=== PATIENT | male | born 1940 | race Two or more races ===

== ENCOUNTER 2016-06-10 05:11 | Emergency (ER) | payer MEDICARE, OTHER ==
[~2016-06-10] VITALS: Ht 177.8 cm; Wt 83.2 kg
[~2016-06-10 05:11] MED LIST: ASPI-664 PO; ATOR20TA38 PO; CARV3.12 PO; CLON-429 PO; ESCI10TA PO; HYDR12.53 PO; IBUP-1542 PO; LISI-523 PO; OLOP2.5D OP; OMEP20CA16 PO; TICA90TA PO; [UNRECOGNIZED DRUG - CODE] OT
[2016-06-10 05:25] VITALS: Ht 177.8 cm; Wt 83.2 kg
[2016-06-10 05:50] LABS: ADD SCAN DIFF NO
[2016-06-10 05:59] LABS: BASOPHILS % 0.4 % (0.0-2.0); EOSINOPHILS # 0.3 10^3/ul (0.0-0.5); HEMATOCRIT 54.3 % (42.0-52.0); HEMOGLOBIN 18.2 g/dl (14.0-18.0); LYMPHOCYTES # 1.8 10^3/ul (0.8-2.9); LYMPHOCYTES % 38.8 % (15.0-51.0); MEAN CORPUSCULAR HGB CONC 33.5 g/dl (32.0-37.0); MEAN CORPUSCULAR VOLUME 86.5 fl (82.0-101.0); MEAN PLATELET VOLUME 10.2 fl (7.4-10.4); MONOCYTE # 0.3 10^3/ul (0.3-0.9); MONOCYTES % 5.3 % (0.0-11.0); NEUTROPHIL # 2.3 10^3/ul (1.6-7.5); NEUTROPHILS % 48.3 % (39.0-77.0); PLATELET COUNT 287 10^3/UL (140-415); RED BLOOD COUNT 6.28 10^6/ul (4.70-6.10); RED CELL DISTRIBUTION WIDTH 14.5 % (11.5-14.5); WHITE BLOOD COUNT 4.7 10^3/ul (4.8-10.8)
[2016-06-10 06:05] LABS: INR 0.87; PROTIME 11.8 Sec (12.2-14.2); PT RATIO 0.9
[2016-06-10 06:05] LABS: POTASSIUM 3.8 mmol/L (3.5-5.1)
[2016-06-10 06:06] LABS: PARTIAL THROMBOPLASTIN TIME 31.7 Sec (25.0-35.0)
[2016-06-10 06:08] LABS: CREATININE 1.01 mg/dl (0.61-1.24)
[2016-06-10 06:09] LABS: CALCIUM 9.7 mg/dl (8.4-10.2)
--- NOTE | 2016-06-10 06:28 | RADRPT ---
PROCEDURE: CHEST - 1 VIEW CLINICAL INDICATION: 75-year-old male with shortness of breath. TECHNIQUE: A single frontal AP view of the chest was performed. The images were reviewed on a PAC S workstation. COMPARISON: Chest x-ray December 10, 2014. FINDINGS: The cardiomediastinal silhouette is prominent but without significant interval change. There is a s hallow inspiration. There is no evidence for focal consolidation. There is mild pulmonary vascular congestion. There is no evidence for pneumothorax. The osseous structures are intact. IMPRESSION: 1. Mild pulmonary vascular congestion. 2. Shallow inspiration. .Damion Wheeler MD, MD Date Time Electronically viewed and signed by .Damion Wheeler MD, on 06/10/2016 06:27 .Alda/
[2016-06-10 06:35] LABS: TROPONIN-I 0.139 ng/ml (0.00-0.12)
--- NOTE | 2016-06-10 06:42 | ERA ---
ER Documentation Chief Complaint Date/Time DATE: 06/10/16 TIME: 06:37 Chief Complaint palpitations,denies CP/SOB HPI 75-year-old male history of V. fib arrest status post stent who presents to the emergency room with palpitations. EMS had reported SVT however upon review of the rhythm strip it appears to be consistent with NSVT. The patient states that he has been having some palpitations and diaphoresis after taking Tylenol for leg pain. The patient had a workup at [facility] recently that rule out DVT. He was recently treated for urinary tract infection. He denied any chest pain or shortness of breath. He has no symptoms currently. The patient was in a sinus rhythm upon arrival. ROS All systems reviewed and are negative except as per history of present illness. Medications Home Meds Active Scripts Hydrochlorothiazide (Hydrochlorothiazide) 12.5 Mg Cap, 12.5 MG PO DAILY, #30 3 Refills Prov:OUMAR LOUIE 12/11/14 Ticagrelor* (Brilinta*) 90 Mg Tablet, 90 MG PO BID, #60 3 Refills Prov:OUMAR LOUIE 12/11/14 Lisinopril* (Zestril*) 5 Mg Tab, 2.5 MG PO DAILY, #30 3 Refills Prov:OUMAR LOUIE 12/11/14 Carvedilol* (Coreg*) 3.125 Mg Tab, 3.125 MG PO BID, #60 3 Refills Prov:OUMAR LOUIE 12/11/14 Atorvastatin Calcium* (Atorvastatin Calcium*) 20 Mg Tab, 40 MG PO DAILY@21, #30 3 Refills Prov:OUMAR LOUIE 12/11/14 Aspirin* (Aspirin* EC) 81 Mg Tabec, 81 MG PO DAILY, #120 Prov:OUMAR LOUIE 12/11/14 Reported Medications Olopatadine* (Pataday*) 0.2% - 2.5 Ml Drops, 1 DROP OP DAILY, EA INTO AFFECTED EYE(S) 12/04/14 Omeprazole* (Omeprazole*) 20 Mg Capsule.dr, 20 MG PO BID, CAP 12/04/14 Clonazepam* (Klonopin*) 0.5 Mg Tab, 0.5 MG PO TID, TAB 12/04/14 Ibuprofen* (Ibuprofen*) 600 Mg Tablet, 600 MG PO TID Y for PAIN, TAB 12/04/14 Escitalopram Oxalate* (Lexapro*) 10 Mg Tablet, 10 MG PO DAILY, TAB 12/04/14 Neomy Sulf/Colist Sul/Hc/Thonz (Cortisporin-Tc Ear Susp) 10 Ml Drops.susp, 3 DROP OT TID 12/04/14 Allergies Allergies: Coded Allergies: azithromycin (Verified Allergy, Unknown, 12/04/14) PMhx/Soc History of Surgery: Yes (s/p cardiac stent this admission) Anesthesia Reaction: No Hx Neurological Disorder: No Hx Respiratory Disorders: No Hx Cardiac Disorders: Yes (hpt) Hx Psychiatric Problems: No Hx Miscellaneous Medical Probl: Yes (HTN, hyperlipid; cardiac arrestx2) Hx Alcohol Use: No Hx Substance Use: No Hx Tobacco Use: No Smoking Status: Unknown if ever smoked FmHx Family History: No diabetes Physical Exam Vitals Vital Signs Date Time Temp Pulse Resp B/P Pulse Ox O2 Delivery O2 Flow Rate FiO2 06/10/16 07:26 98.0 82 18 100/74 100 06/10/16 05:35 Nasal Cannula 3 06/10/16 05:25 97.7 100 18 120/87 100 Physical Exam General: Well developed, well nourished, no acute distress Head: Normocephalic, atraumatic. Eyes: Pupils equally reactive, EOM intact ENT: Moist mucous membranes Neck: Supple, no lymphadenopathy Respiratory: Lungs clear bilaterally, no distress Cardiovascular: RRR, no murmurs, rubs, or gallops Abdominal: Soft, non-tender, non-distended, no peritoneal signs : Deferred MSK: No edema, no unilateral swelling, 5/5 strength Neurologic: Alert and oriented, moving all extremities, normal speech, no focal weakness, no cerebellar signs Skin: No rash Psych: Normal mood Result Diagram: 06/10/16 0545 06/10/16 0527 Results 24 hrs Laboratory Tests Test 06/10/16 05:27 06/10/16 05:40 06/10/16 05:45 Anion Gap 20 B-Type Natriuretic Peptide 1930PG/ML Blood Urea Nitrogen 13mg/dl Calcium Level 9.7mg/dl Carbon Dioxide Level 24mmol/L Chloride Level 99mmol/L Creatinine 1.01mg/dl Glucose Level 125mg/dl Magnesium Level 2.1mg/dl Potassium Level 3.8mmol/L Sodium Level 139mmol/L Troponin I 0.139ng/ml Activated Partial Thromboplast Time 31.7Sec INR International Normalized Ratio 0.87 Prothrombin Time 11.8Sec Prothrombin Time Ratio 0.9 Basophils # 0.010^3/ul Basophils % 0.4% Eosinophils # 0.310^3/ul Eosinophils % 7.0% Hematocrit 54.3% Hemoglobin 18.2g/dl Lymphocytes # 1.810^3/ul Lymphocytes % 38.8% Mean Corpuscular Hemoglobin 29.0pg Mean Corpuscular Hemoglobin Concent 33.5g/dl Mean Corpuscular Volume 86.5fl Mean Platelet Volume 10.2fl Monocytes # 0.310^3/ul Monocytes % 5.3% Neutrophils # 2.310^3/ul Neutrophils % 48.3% Nucleated Red Blood Cells # 0.010^3/ul Nucleated Red Blood Cells % 0.0/100WBC Platelet Count 05539^3/UL Red Blood Count 6.2810^6/ul Red Cell Distribution Width 14.5% White Blood Count 4.710^3/ul Current Medications Medications (Trade) Dose Ordered Sig/Stevan Route PRN Reason Start Time Stop Time Status Last Admin Dose Admin Aspirin (Aspirin) 324 mg ONCE ONCE PO 06/10/16 07:00 06/10/16 07:01 DC Amiodarone HCl 100 ml 100 ml ONCE STAT IV* 06/10/16 07:36 06/10/16 07:38 DC Amiodarone HCl (Cordarone 900mg/ D5W Drip) 500 ml @ 0 mls/hr ONCE STAT IV 06/10/16 07:36 06/10/16 07:38 DC Procedures/MDM EKG, MONITORS, & DIAGNOSTIC IMAGING: Rhythm strip: From EMS Rate/Rhythm: NSVT Impression: Nonsustained ventricular tachycardia EKG: I reviewed and interpreted a 12-lead EKG. Rhythm: Normal sinus rhythm Ectopy: None Intervals: Right bundle branch block ST segments: No elevations or depressions T waves: No contiguous inversions LAB INTERPRETATION: Elevated troponin MEDICAL DECISION MAKING: The patient presents with palpitations. He attributes this to taking Tylenol for leg pain status post stretch injury. However, the patient's rhythm strip in the field is very concerning for nonsustained ventricular tachycardia. The patient does not have a pacemaker he does not appear to take amiodarone or other antiarrhythmic agent. Additionally, the patient has a non-ST elevation myocardial infarction. This is likely secondary to demand ischemia given no other symptoms. The patient is asymptomatic currently. Aspirin will be provided. I will discuss the case with his glost kiln placer who is seen in the past of discussed amiodarone or other antiarrhythmic agent at this time. Magnesium has been sent. Pads been placed on the patient and the patient was placed on the monitor. He would warrant inpatient hospitalization for close observation. The patient will benefit from cardiology evaluation, EP evaluation and consideration for pacemaker/defibrillator. ER COURSE: The patient continues to be resting comfortably. He has had no further events. The patient's EF in the past was reduced to 40%. This is based on echocardiogram in 2014. I spoke to Dr. mark Choudhury who had seen the patient in the past. He recommends amiodarone bolus and drip, he recommends consultation for inpatient cardiology, consideration for defibrillator. I kept the patient and/or family informed of laboratory and diagnostic imaging results throughout the emergency room course. DISPOSITION PLAN: Telemetry admission CONSULTATION: Accepting care team and consultations: I discussed the current laboratory data, diagnostic imaging and emergency care provided. Admitting team: Dr. Shah Admitting team indication: Insurance directed Consulting services: Cardiology Dr. Freeman Departure Diagnosis: Primary Impression: Nonsustained ventricular tachycardia Additional Impression: Non-ST elevation myocardial infarction (NSTEMI) Condition: Stable ROHAN PHILIP MD Jun 10, 2016 06:42
[2016-06-10] MEDS ORDERED: ASPIRIN 81 MG TAB PO ONE (07:00)
[2016-06-10 07:26] VITALS: BP 100/74; PULSE 82; RESP 18; TEMP 98
[2016-06-10] MEDS ORDERED: AMIODARONE 150MG/D5W BOLUS IV* STA (07:36)
[2016-06-10] MEDS ORDERED: AMIODARONE 900MG/D5W DRIP 500 ML IV STA ×2 (07:36→09:13)
[2016-06-10] MEDS ORDERED: ONDANSETRON 4 MG INJ IV PRN (08:30)
[2016-06-10] MEDS ORDERED: ACETAMINOPHEN 325 MG TAB PO PRN (08:30)
[2016-06-10] MEDS ORDERED: AMIO400T5 PO (09:48)
[2016-06-10] MEDS ORDERED: TICA90TA PO (09:48)
--- NOTE | 2016-06-10 10:35 | CONS ---
Date/Time of Note Date/Time of Note DATE: 06/10/16 TIME: 10:21 Assessment/Plan Assessment/Plan Chief Complaint/Hosp Course NSVT vs SVT with aberrancy: Difficult to tell as similar QRS morphology. Rate of 150 could be consistent with atrial flutter but in the setting of previous [place] and structural heart disease/cardiomyopathy, cannot rule out NSVT/VT. The pt does not have chest pain or evidence of ischemia though he has mildly elevated trops. He is not in heart failure by exam. I think ideally he should be admitted for evaluation, EP eval and possible ICD placement, EP study, or ablation. However the pt refuses and would like to go home. He understands the risks including and will sign out AMA. He is agreeable to medications and I believe amiodarone is a reasonable option. I will have him sent out with amiodarone 400mg BID as an oral load and when he sees his caterer helper in 5 days , this can be decreased. He is already on coreg as well. 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 Of note the pt was offered an ICD in 2014 during his VF hospitalization but refused. He notes that he has been doing well since and he will be following up with a new caterer helper in 5 days. He took tylenol last night for leg pain and after t hat started to feel palpitations with rapid heart rate so he called 911. The paramedics had a strip concerning for SVT vs NSVT so they brought the pt in for evaluation. The pt notes that he feels well and he denies CP or SOB. No recent changes in his health condition. No syncope or presyncope. No prior episodes of palpitations. He he uninterested in inpt evaluation and respectfully would like to sign out AMA. He notes that he will absolutely refuse an ICD or any procedure including ablation if offered. He is agreeable to medications however. He notes that "Im an old man and I want to . I am not afraid of ". He denies suicidal ideation and simply explains it as he has lived a good life and does not want any life prolonging measures. per HPI Past Surgical History Past Surgical Hx: noncontributory Social History Smoking Status: Unknown if ever smoked Exam/Review of Systems Vital Signs Vitals Vital Signs Date Time Temp Pulse Resp B/P Pulse Ox O2 Delivery O2 Flow Rate FiO2 06/10/16 07:26 98.0 82 18 100/74 100 06/10/16 05:35 Nasal Cannula 3 Exam Constitutional: alert, oriented Psych: no complaints Head: atraumatic, normocephalic Eyes: nl conjunctiva ENMT: nl external ears & nose Neck: No jvd Respiratory: clear to auscultation, No crackles/rales Cardiovascular: regular rate and rhythm, No edema, No systolic murmur Gastrointestinal: non-tender, soft Extremities: normal pulses Neurological: nl mental status, nl speech Results EKG: sinus, q waves V1-3, no acute ST changes. Review of EMT EKG shows that the morphology of the arrhythmia is very similar to his baseline but slightly wider. It is mostly regular with HR ~150. No e/o AV dissociation. Unfortunately there is no rhythm strip but just a standard 12 lead with 3/4 in the tachycardia and the back end in sinus. Result Diagram: 06/10/16 0545 06/10/16 0527 Results 24 hrs Laboratory Tests Test 06/10/16 05:27 06/10/16 05:40 06/10/16 05:45 Anion Gap 20 H B-Type Natriuretic Peptide 1930 H Blood Urea Nitrogen 13 Calcium Level 9.7 Carbon Dioxide Level 24 Chloride Level 99 Creatinine 1.01 Glucose Level 125 Magnesium Level 2.1 Potassium Level 3.8 Sodium Level 139 Troponin I 0.139 *H Activated Partial Thromboplast Time 31.7 INR International Normalized Ratio 0.87 Prothrombin Time 11.8 L Prothrombin Time Ratio 0.9 Basophils # 0.0 Basophils % 0.4 Eosinophils # 0.3 Eosinophils % 7.0 Hematocrit 54.3 #H Hemoglobin 18.2 #H Lymphocytes # 1.8 Lymphocytes % 38.8 Mean Corpuscular Hemoglobin 29.0 Mean Corpuscular Hemoglobin Concent 33.5 Mean Corpuscular Volume 86.5 Mean Platelet Volume 10.2 Monocytes # 0.3 Monocytes % 5.3 Neutrophils # 2.3 Neutrophils % 48.3 Nucleated Red Blood Cells # 0.0 Nucleated Red Blood Cells % 0.0 Platelet Count 287 Red Blood Count 6.28 #H Red Cell Distribution Width 14.5 White Blood Count 4.7 #L INDY VELÁZQUEZ Jun 10, 2016 10:34
== END 2016-06-10 10:18 | disposition left against medical advice (07) ==
LOC: E/R 05:11
DX: I47.2 Ventricular tachycardia (principal); R40.2252 Coma scale, best verbal response, oriented, at arrival to emergency department; I21.4 Non-ST elevation (NSTEMI) myocardial infarction; I10 Essential (primary) hypertension; R40.2142 Coma scale, eyes open, spontaneous, at arrival to emergency department; R40.2362 Coma scale, best motor response, obeys commands, at arrival to emergency department; R06.02 Shortness of breath; Z79.82 Long term (current) use of aspirin
CPT/HCPCS: 36415; 71010; 80048; 83735; 83880; 84484; 85025; 85610; 85730; 96374; 99285; J0282

== ENCOUNTER 2018-07-15 07:56 | Inpatient (IN) | payer MEDICARE, OTHER ==
[2018-07-15] VITALS (16 sets, daily range): BP systolic 73–134; BP diastolic 46–119; PULSE 67–86; RESP 19–30; Ht 172.7 cm; Wt 75.0 kg
[~2018-07-15] VITALS: Ht 172.7 cm; Wt 75.0 kg
[~2018-07-15 07:56] MED LIST changes: +AMIO400T5 PO; -ASPI-664 PO; +ASPI-817 PO
[2018-07-15] MEDS ORDERED: SOD CHLORIDE 0.9% 1,000 ML IV STA (08:21)
[2018-07-15] MEDS ORDERED: AMIODARONE 150MG/D5W BOLUS 100 ML IV ONE (08:30)
[2018-07-15] MEDS ORDERED: PROPOFOL 200 MG INJ IV ONE (09:30)
[2018-07-15] MEDS ORDERED: HEPARIN 25000 UNITS/250 ML 250 ML IV STA (09:45)
--- NOTE | 2018-07-15 09:47 | ERD ---
ER Documentation Chief Complaint Chief Complaint gen abd pain for the past 2 days with no nausea/vomiting. no diarrhea HPI This is a 77-year-old male with a history of ventricular tachycardia with LAD stent placement. The patient was admitted here 3 years ago for chest pain and VT. He was apparently given amiodarone 400 mg twice daily but the patient left AMA. The patient states that over the past 2 days he has had a constant dull ache in his entire abdomen but no nausea vomiting or diarrhea. Denies any chest pain or shortness of breath. He was found to have a fast heart rate in triage in the 140s and was subsequently put on monitors here and has a wide-complex tachycardia. The family states that he has chronically low blood pressure with his baseline at 90/70. He states that he has been compliant with his medication ROS All systems reviewed and are negative except as per history of present illness. Medications Home Meds Active Scripts Ticagrelor* (Brilinta*) 90 Mg Tablet, 90 MG PO Q12 for 30 Days, TAB Prov:ROHAN PHILIP MD 06/10/16 Amiodarone Hcl* (Amiodarone Hcl*) 400 Mg Tablet, 400 MG PO BID for 30 Days, TAB Prov:ROHAN PHILIP MD 06/10/16 Hydrochlorothiazide (Hydrochlorothiazide) 12.5 Mg Cap, 12.5 MG PO DAILY, #30 3 Refills Prov:OUMAR LOUIE 12/11/14 Lisinopril* (Zestril*) 5 Mg Tab, 2.5 MG PO DAILY, #30 3 Refills Prov:OUMAR LOUIE 12/11/14 Carvedilol* (Coreg*) 3.125 Mg Tab, 3.125 MG PO BID, #60 3 Refills Prov:OUMAR LOUIE 12/11/14 Atorvastatin Calcium* (Atorvastatin Calcium*) 20 Mg Tab, 40 MG PO DAILY@21, #30 3 Refills Prov:OUMAR LOUIE 12/11/14 Aspirin* (Aspirin* EC) 81 Mg Tabec, 81 MG PO DAILY, #120 Prov:OUMAR LOUIE 12/11/14 Reported Medications Olopatadine* (Pataday*) 0.2% - 2.5 Ml Drops, 1 DROP OP DAILY, EA INTO AFFECTED EYE(S) 12/04/14 Omeprazole* (Omeprazole*) 20 Mg Capsule.dr, 20 MG PO BID, CAP 12/04/14 Clonazepam* (Klonopin*) 0.5 Mg Tab, 0.5 MG PO TID, TAB 12/04/14 Ibuprofen* (Ibuprofen*) 600 Mg Tablet, 600 MG PO TID PRN for PAIN, TAB 12/04/14 Escitalopram Oxalate* (Lexapro*) 10 Mg Tablet, 10 MG PO DAILY, TAB 12/04/14 Neomy Sulf/Colist Sul/Hc/Thonz (Cortisporin-Tc Ear Susp) 10 Ml Drops.susp, 3 DROP OT TID 12/04/14 Allergies Allergies: Coded Allergies: azithromycin (Verified Allergy, Unknown, 12/04/14) PMhx/Soc History of Surgery: Yes (Heart stent in 2014) Anesthesia Reaction: No Hx Neurological Disorder: No Hx Respiratory Disorders: No Hx Cardiac Disorders: Yes (hypotension) Hx Psychiatric Problems: No Hx Miscellaneous Medical Probl: Yes (HTN, hyperlipid; cardiac arrestx2) Hx Alcohol Use: No Hx Substance Use: No Hx Tobacco Use: No Smoking Status: Never smoker FmHx Family History: No coronary disease Physical Exam Vitals Vital Signs Date Temp Pulse Resp B/P (MAP) Pulse Ox O2 O2 Flow FiO2 Time Delivery Rate 07/15/18 66 20 77/62 (67) 97 Non 15.0 09:33 Rebreather 07/15/18 67 22 85/67 (73) 99 Non 15.0 09:30 Rebreather 07/15/18 141 26 80/57 (65) 100 Nasal 2.0 08:54 Cannula 07/15/18 145 25 91/78 (82) 100 Nasal 2.0 08:33 Cannula 07/15/18 Nasal 2 08:33 Cannula 07/15/18 98.5 142 20 103/79 100 07:57 (87) Physical Exam Const: Well-developed, well-nourished Head: Atraumatic, normocephalic Eyes: Normal Conjunctiva, PERRLA, EOMI, normal sclera, no nystagmus ENT: Normal External Ears, Nose and Mouth, moist mucus membranes. Neck: Full range of motion. No meningismus, no lymphadenopathy. Resp: Clear to auscultation bilaterally, no wheezing, rhonchi, rales Cardio: Tachycardia heart rate 142, no murmurs, S1 S2 present] Abd: Soft, diffuse abdominal tenderness, non distended. Normal bowel sounds, no guarding or rebound, no pulsitile abdominal masses or bruits Skin: No petechiae or rashes, no ecchymosis , no maculopapular rash Back: No midline or flank tenderness Ext: No cyanosis, or edema, FROM x 4, normal inspection, neurovascularly intact x 4 Neur: Awake and alert, STR 5/5 x 4, sensation intact x 4, no focal findings, cerebellum intact Psych: Normal Mood and Affect Result Diagram: 07/15/18 0815 07/15/18 0815 Results 24 hrs Laboratory Tests Test 07/15/18 08:15 White Blood Count 6.3 10^3/ul Red Blood Count 4.94 10^6/ul Hemoglobin 14.5 g/dl Hematocrit 42.8 % Mean Corpuscular Volume 86.6 fl Mean Corpuscular Hemoglobin 29.4 pg Mean Corpuscular Hemoglobin Concent 33.9 g/dl Red Cell Distribution Width 14.5 % Platelet Count 279 10^3/UL Mean Platelet Volume 11.0 fl Immature Granulocytes % 0.300 % Neutrophils % 65.8 % Lymphocytes % 23.8 % Monocytes % 9.6 % Eosinophils % 0.3 % Basophils % 0.2 % Nucleated Red Blood Cells % 0.0 /100WBC Immature Granulocytes # 0.020 10^3/ul Neutrophils # 4.1 10^3/ul Lymphocytes # 1.5 10^3/ul Monocytes # 0.6 10^3/ul Eosinophils # 0.0 10^3/ul Basophils # 0.0 10^3/ul Nucleated Red Blood Cells # 0.0 10^3/ul Prothrombin Time 16.7 Sec Prothrombin Time Ratio 1.3 INR International Normalized Ratio 1.34 Activated Partial Thromboplast Time 38.3 Sec Sodium Level 127 mmol/L Potassium Level 5.1 mmol/L Chloride Level 92 mmol/L Carbon Dioxide Level 20 mmol/L Anion Gap 15 Blood Urea Nitrogen 32 mg/dl Creatinine 1.63 mg/dl Est Glomerular Filtrat Rate mL/min mL/min Glucose Level 154 mg/dl Calcium Level 9.3 mg/dl Total Bilirubin 1.1 mg/dl Direct Bilirubin 0.00 mg/dl Indirect Bilirubin 1.1 mg/dl Aspartate Amino Transf (AST/SGOT) 36 IU/L Alanine Aminotransferase (ALT/SGPT) 25 IU/L Alkaline Phosphatase 67 IU/L Troponin I 1.040 ng/ml Total Protein 7.1 g/dl Albumin 4.2 g/dl Globulin 2.90 g/dl Albumin/Globulin Ratio 1.44 Lipase 60 U/L Current Medications Medications Dose Sig/Stevan Start Time Status Last (Trade) Ordered Route PRN Stop Time Admin Dose Reason Admin Sodium 1,000 ml @ Q1H STAT 07/15/18 DC 07/15/18 Chloride 1,000 mls/hr IV 08:21 08:26 07/15/18 09:20 Amiodarone 100 ml @ ONCE ONCE 07/15/18 DC 07/15/18 HCl 600 mls/hr IV 08:30 08:26 07/15/18 08:39 Propofol 100 mg ONCE ONCE 07/15/18 DC (Diprivan) IV 09:30 07/15/18 09:31 Procedures/MDM EKG: Rate/Rhythm: Wide-complex tachycardia heart rate 142 with int raventricular block QRS, ST, QT: NORMAL AR, QRS, QT] Impression: Abnormal EKG Gave the patient a bolus of amiodarone 150 mg but this did not change his rhythm. Blood pressure continue to wax and wane from systolic of 75-85. He was then given propofol 70 mg IV for conscious sedation, he was then defibrillated at synchronized 100 J with successful cardioversion EKG: Rate/Rhythm: Normal sinus rhythm heart rate 63 with PVCs with right bundle branch and left anterior fascicular block with Q waves in V1 and V2 with elevated ST segments in leads V2 QRS, ST, QT: NORMAL AR, QRS, QT] Impression: Abnormal EKG Dr Cervantes reviewed the EKG after conversion and says there is no elevation consistent with STEMI. He advised me to put him on a heparin drip and get a echocardiogram and he will likely taken to the [facility] later today if no contraindications Procedural Sedation: Pre-assessment performed. See preceding complete history and physical for details. Time out performed. [employer], Continuous Pulse Ox. See sedation documentation for details. Medication(s): Propofol Complications: No hypoxic or apneic events Recovered without incident. Greater than 15 minutes of face to face time included in sedation and recovery. Cardioversion: Pre-assessment performed. See preceding complete history and physical for details. Time out performed. [employer], Continuous Pulse Ox. See sedation documentation for details. Technique: Biphasic Synchronized Cardioversion 100J: Converted 200J: Unnecessary Complications: No hypotensive events Critical Care: Time: 45 minutes Treatments/Evaluations: Close monitoring for dangerous arrhythmia and cardiovascular collapse, while treating with advance cardiac medications and techniques. Departure Diagnosis: Primary Impression: NSTEMI (non-ST elevated myocardial infarction) Additional Impression: Wide-complex tachycardia Condition: Serious VANDANA CAMPOS DO Jul 15, 2018 09:47
[2018-07-15] MEDS ORDERED: SACU1TAB PO (09:53)
[2018-07-15] MEDS ORDERED: APIX5TAB PO (09:53)
[2018-07-15] MEDS ORDERED: CARV6.2579 PO (09:54)
[2018-07-15] MEDS ORDERED: TAMS0.4C2 PO (09:54)
[2018-07-15] MEDS ORDERED: PANT40TA4 PO (09:54)
[2018-07-15] MEDS ORDERED: ACETAMINOPHEN 325 MG TAB PO PRN ×2 (10:00→12:00)
[2018-07-15] MEDS ORDERED: ONDANSETRON 4 MG INJ IV PRN ×2 (10:00→12:00)
--- NOTE | 2018-07-15 11:53 | HP ---
Date/Time of Note Date/Time of Note DATE: 07/15/18 TIME: 11:53 Assessment/Plan VTE Prophylaxis Pharmacological prophylaxis: heparin Lines/Catheters IV [facility]from [facility]): Saline Lock Assessment/Plan Hospital Course 77-year-old male with prior history of cardiac arrest with STEMI in 2015 with LAD stent placement, ischemic cardiomyopathy (ejection fraction 40%), dyslipidemia, hypertension, and ventricular tachycardia, who came to the emergency room with chief complaint of abdominal pain, who was found to have evidence of underlying unstable ventricular tachycardia who was cardioverted in the emergency room to sinus rhythm and is being admitted to inpatient setting for further treatment and evaluation. 1. Unstable ventricular tachycardia. -Status post cardioversion in the emergency room. -Cardiology consult pending. -Continue telemetry monitoring. 2. NSTEMI. -To rule out ACS. -Continue heparin drip. -Await cardiology recommendations 3. Acute kidney injury. -Nonoliguric -Etiology unclear. -Hold nephrotoxic medications. -Adequately hydrate the patient. -Obtain nephrology consult 4. Hyponatremia. -Etiology unclear. -Obtain nephrology consult. -Correct sodium levels gradually. 5. Ischemic cardiomyopathy. -Resume MERI inhibitors and beta-blockers as appropriate. 6. Dyslipidemia. -Continue statins. 7. Abdominal pain. -Etiology unclear. -Abdominal imaging showing evidence of cholelithiasis. -LFTs within normal limits. -Trend LFTs. -Obtain right upper quadrant ultrasound. Plan: The patient will be admitted to inpatient intensive care unit floor. The patient will be kept n.p.o. The patient will be started on DVT prophylaxis and gastrointestinal prophylaxis. The patient will remain a full code. Activities will be bed rest. The rest of the patient's management will be based on the clinical course, inputs from consultants, and the results of diagnostic studies. Based on the patient's clinical presentation, he most probably requires at least 2 midnights' stay for further management and evaluation of his clinical presentation. The patient was seen in collaboration with Dr. Shah. Result Diagram: 07/15/18 0815 07/15/18 0815 Results 24hrs Laboratory Tests Test 07/15/18 08:15 White Blood Count 6.3 # Red Blood Count 4.94 # Hemoglobin 14.5 # Hematocrit 42.8 # Mean Corpuscular Volume 86.6 Mean Corpuscular Hemoglobin 29.4 Mean Corpuscular Hemoglobin Concent 33.9 Red Cell Distribution Width 14.5 Platelet Count 279 Mean Platelet Volume 11.0 H Immature Granulocytes % 0.300 Neutrophils % 65.8 Lymphocytes % 23.8 Monocytes % 9.6 Eosinophils % 0.3 Basophils % 0.2 Nucleated Red Blood Cells % 0.0 Immature Granulocytes # 0.020 Neutrophils # 4.1 Lymphocytes # 1.5 Monocytes # 0.6 Eosinophils # 0.0 Basophils # 0.0 Nucleated Red Blood Cells # 0.0 Prothrombin Time 16.7 H Prothrombin Time Ratio 1.3 INR International Normalized Ratio 1.34 Activated Partial Thromboplast Time 38.3 H Sodium Level 127 L Potassium Level 5.1 Chloride Level 92 L Carbon Dioxide Level 20 L Anion Gap 15 H Blood Urea Nitrogen 32 H Creatinine 1.63 H Est Glomerular Filtrat Rate mL/min Glucose Level 154 Calcium Level 9.3 Total Bilirubin 1.1 Direct Bilirubin 0.00 Indirect Bilirubin 1.1 Aspartate Amino Transf (AST/SGOT) 36 Alanine Aminotransferase (ALT/SGPT) 25 Alkaline Phosphatase 67 Troponin I 1.040 *H Total Protein 7.1 Albumin 4.2 Globulin 2.90 Albumin/Globulin Ratio 1.44 Lipase 60 HPI/ROS Admit Date/Time Admit Date/Time Jul 15, 2018 at 09:58 Hx of Present Illness This is a 77-year-old male with comorbidities including hypertension, dyslipidemia, CAD status post LAD stenting in 2014, status post cardiac arrest in 2014, and prior nicotine use. The patient came to the emergency room today with generalized abdominal pain. Patient was noticed to be in the ventricular tachycardia with hypotension. Therefore, the patient was sedated and cardioverted in the emergency room. The patient's postprocedure EKG was evaluated by jackscrew worker there was no evidence of STEMI. The patient was also noticed to have elevated troponins. The patient was started on a heparin drip. The patient was also noted to be in acute kidney injury. The patient also had a sodium level of 127. The patient denied any nausea/vomiting. The patient denied any diarrhea. The patient denied any chest pain. The patient denied any palpitations. Patient verbalized that he has been compliant with all his medications. The patient currently takes Eliquis, Lipitor, Entresto, Coreg, and Protonix. Later, the patient's CT scan of the abdomen and pelvis was showing biliary sludge with possible wall thickening/surrounding inflammatory changes about the gallbladder. The patient's LFTs were within normal limits. ROS Constitutional: no complaints Eyes: no complaints ENT: no complaints Respiratory: no complaints Cardiovascular: no complaints Gastrointestinal: pain Genitourinary: no complaints Musculoskeletal: no complaints Skin: no complaints Neurologic: no complaints Endocrine: no complaints Lymphatic: no complaints Psychological: no complaints Immunologic: no complaints PMH/Family/Social Past Medical History 1. V. fib cardiac arrest. 2. CAD status post drug-eluting stent to LAD. 3. Ventricular tachycardia. 4. Ischemic cardiomyopathy. 5. Dyslipidemia. Medications Current Medications Heparin Sodium (Porcine) 250 ml @ 9 mls/hr ONCE STAT IV Last administered on 07/15/18at 10:04; Admin Dose 9 MLS/HR; Start 07/15/18 at 09:45; Stop 07/16/18 at 13:31 Ondansetron HCl (Zofran Inj) 4 mg ER BRIDGE PRN IV NAUSEA/VOMITING; Start 07/15/18 at 10:00; Stop 07/16/18 at 09:59 Acetaminophen (Tylenol Tab) 650 mg ER BRIDGE PRN PO .MILD PAIN 1-3 OR TEMP; Start 07/15/18 at 10:00; Stop 07/16/18 at 09:59 IV Flush (NS 3 ml) 3 ml PER PROTOCOL IV ; Start 07/15/18 at 12:00; Status UNV Ondansetron HCl (Zofran Inj) 4 mg Q6H PRN IV NAUSEA/VOMITING; Start 07/15/18 at 12:00; Status UNV Acetaminophen (Tylenol Tab) 650 mg Q6H PRN PO .PAIN 1-3 OR TEMP; Start 07/15/18 at 12:00; Status UNV Morphine Sulfate (morphine) 2 mg Q4H PRN IV .PAIN 7-10; Start 07/15/18 at 12:00; Status UNV Coded Allergies: azithromycin (Verified Allergy, Unknown, 07/15/18) Past Surgical History Past Surgical Hx: angioplasty Family History Significant Family History: no pertinent family hx Social History Alcohol Use: none Smoking Status: Former smoker Drug Use: none Exam/Review of Systems Vital Signs Vitals Vital Signs Date Temp Pulse Resp B/P (MAP) Pulse Ox O2 O2 Flow FiO2 Time Delivery Rate 07/15/18 66 22 85/66 (72) 100 Nasal 2.0 10:36 Cannula 4/15/19 98.5 07:57 Exam Exam General: Adequately build 77 year-old male lying in bed in no apparent distress. HEENT: Normocephalic, atraumatic. Eyes: Anicteric sclerae, conjunctivae clear. ENT: Nasal septum midline, oral mucosa moist. Neck supple. Respiratory: Bilaterally clear breath sounds. No use of accessory muscles of respiration. No adventitious breath sounds. Cardiovascular: S1, S2 heard. Regular rate and rhythm. Abdomen: Soft, nontender, and nondistended. Bowel sounds positive in all 4 quadrants. Genitourinary: Deferred. Extremities: No cyanosis, no clubbing, no edema. Peripheral pulses palpable. Neurologic: Cranial nerves II through XII grossly intact. The patient is awake, alert, and oriented. Skin: Normal skin turgor. No skin rashes. Additional Comments CT Abdomen & Pelvis IMPRESSION: 1. Biliary sludge with possible wall thickening/surrounding inflammatory changes about the gallbladder, though markedly limited due to motion artifact in the upper abdomen. Recommend right upper quadrant abdominal ultrasound for further evaluation of potential acute cholecystitis as clinically warranted. 2. Apparent bilateral lower lobe bronchial wall thickening, possible scattered secretions, also suboptimally assessed, may reflect airway inflammation/infection. Correlate for potential pneumonia. CXR IMPRESSION: 1. Slightly elevated right diaphragm. Mild central bronchial wall thickening compatible with trace edema or airways inflammation. 2. Aortic atherosclerosis. ELLY CAMPBELL NP Jul 15, 2018 11:53
[2018-07-15] MEDS ORDERED: morphine 2 MG INJ IV PRN (12:00)
[2018-07-15] MEDS ORDERED: NACL 0.9% 3 ML SYG IV SCH (12:00)
--- NOTE | 2018-07-15 14:16 | RADRPT ---
Echocardiogram Report Patient Name: Jacek LOPEZ ID: [id number] : 1940 (77y 10m)Study Date: 07/15/2018 10:03:11 AM Gender: [place]ession #: [id number] Tech: [place] Location: Ref.Physician: VANDANA CAMPOS Height(Cm): BSA: Weight(Kg): Quality: AdequateAccount #: Procedures: Echocardiographic Report: Transthoracic echocardiogram with complete 2D, M-Mode, and doppler examination. Indications: Evaluate Left Ventricular function. VT positive Troponin. Measurements: 2D/M Mode Doppler Measurement Value Normal Range Measurement Value Normal Range LVIDd 2D 6.5 [ 4.2 - 5.8 ] cm AV Peak Socrates 1.1 [ 100.0 - 170.0 ] cm/sec LVIDs 2D 6.5 [ 2.5 - 4.0 ] cm AV Peak PG 5.0 [ 2.0 - 9.0 ] mmHg LVPWd 2D 0.8 [ 0.6 - 1.0 ] cm LVOT Peak Socrates 0.7 [ 70.0 - 110.0 ] cm/sec IVSd 2D 0.9 [ 0.6 - 1.0 ] cm LVOT Peak PG 2.0 [ 2.0 - 6.0 ] mmHg AoR Diam 2D 3.5 [ 2.6 - 3.4 ] cm MV E Peak Socrates 0.7 [ 60.0 - 130.0 ] cm/sec EDV 2D 216.0 [ 62.0 - 150.0 ] ml MV A Peak Socrates 0.4 [ 100.0 - 120.0 ] cm/sec ESV 2D 216.0 [ 21.0 - 61.0 ] ml MV E/A 1.7 [ 0.8 - 1.5 ] ratio EF 2D 0.0 [ 52.0 - 72.0 ] percent MV Decel Time 176 [ 104 - 258 ] msec LA Dimen 2D 3.9 [ 3.0 - 4.0 ] cm Lat E` Socrates 0.0 [ 10.0 - 15.0 ] cm/sec Lateral E/E` 15.9 [ 1.0 - 2.0 ] ratio MV E/A 1.7 [ 0.8 - 1.5 ] ratio TR Peak Socrates 2.5 [ 100.0 - 280.0 ] cm/sec TR Peak PG 25.0 mmHg RVSP 35.0 [ 10.0 - 36.0 ] mmHg RA Pressure 10.0 mmHg Findings: Left Ventricle: Normal left ventricular wall thickness. Moderate enlargement of left ventricle cavity. Severe left ventricular systolic dysfunction. Ejection fraction is visually estimated at 15-20 %. These segments of the LV are hypokinetic mid anterior segment, apical anterior segment, apical lateral segment, anterolateral mid segment, inferior apex segment, apex and apical septum. Right Ventricle: Normal right ventricular size. Normal right ventricular systolic function. Left Atrium: The left atrium is normal in size. Right Atrium: The right atrium is normal in size. Mitral Valve: Mitral valve leaflets appear mildly thickened. Mild mitral annular calcification. Mild mitral valve regurgitation. Aortic Valve: Normal appearance of the aortic valve. No significant aortic stenosis or insufficiency. Tricuspid Valve: Normal appearance of the tricuspid valve. Estimated peak PA systolic pressure 35 mmHg. There is mild tricuspid regurgitation. Pulmonic Valve: Normal pulmonic valve appearance. Pericardium: Normal pericardium with no significant pericardial effusion. Aorta: Normal aortic root. IVC: Dilated IVC with respiratory collapse consistent with elevated right atrial pressure. Conclusions: Normal left ventricular wall thickness. Moderate enlargement of left ventricle cavity. Severe left ventricular systolic dysfunction. Ejection fraction is visually estimated at 15-20 %. These segments of the LV are hypokinetic mid anterior segment, apical anterior segment, apical lateral segment, anterolateral mid segment, inferior apex segment, apex and apical septum. Mitral valve leaflets appear mildly thickened. Mild mitral annular calcification. Mild mitral valve regurgitation. Normal appearance of the aortic valve. No significant aortic stenosis or insufficiency. Normal appearance of the tricuspid valve. Estimated peak PA systolic pressure 35 mmHg. There is mild tricuspid regurgitation. Dilated IVC with respiratory collapse consistent with elevated right atrial pressure. Electronically Signed By: Paul Stock 2018-07-15 14:14:51 PDT
--- NOTE | 2018-07-15 15:02 | CONS ---
Assessment/Plan Assessment/Plan Hospital Course (Demo Recall) Ventricular tachycardia requiring emergent/urgent cardioversion Severe ischemic cardiomyopathy ejection fraction of less than 20% Non-ST elevation myocardial infarction History of hypertension Likely dyslipidemia Acute renal insufficiency Recommendations: I have a lengthy discussion with the patient and his daughter. Coronary angiogram and most likely defibrillator was recommended to the patient and the family strongly. However patient and family said this has been discussed with him in the past and he has refused to have it done he does not want to have any procedures or surgery done including does not want to have even a lamine angiogram done and is only interested in medications Serial cardiac enzymes will be checked. We will continue medical therapy only at this point given his wishes Coreg will be continued increase as tolerated I will start the patient on amiodarone p.o. for now Statin will be added Entresto will be resumed tomorrow his renal function remains stable Diuresis as needed Thank you for his referral. We will continue to follow along with you ELIZABETH CONNELL MD [facility] Consultation Date/Type/Reason Admit Date/Time Jul 15, 2018 at 09:58 Date of Consultation: Jul 15, 2018 Type of Consult Cardiology Reason for Consultation VT. + TROP Requesting Provider: VANDANA CAMPOS DO Date/Time of Note DATE: 07/15/18 TIME: 14:55 Hx of Present Illness Interventional cardiology consultation note Chief complaint: Lower abdominal pain Reason for consult: Ventricular tachycardia positive troponin History of present illness: Thank you for this referral. History was from the patient extensive review of the old chart discussion with his daughter who is also translating This is a pleasant 77-year-old -[place] gentleman with history of coronary artery disease status post V. fib cardiac arrest status post PCI of his LAD in 2014 who has had another V. tach apparently couple of years ago and signed out AMA who presented to emergency room with complaint of lower abdominal pain. Patient was noted to have wide complex tachycardia/ventricular tachycar kanika and became hypotensive and required to get urgent/emergent cardioversion in the emergency room. Denies any chest pain or pressure to me denies any palpitation to me. He has refused ICD apparently before. At this point I spoke to him to his daughter and he is refusing to have any surgery including any coronary angiogram or defibrillator done. Denies any PND orthopnea to me at this point Allergies: Azithromycin Medications were reviewed as per medical reconciliation sheet According to the patient and daughter he is on Eliquis 5 twice daily Entresto Coreg amiodarone Family history: Denies any history of coronary artery disease Social history: Has quit smoking Past medical history: Coronary artery disease status post PA status post PCI of his LAD 2014 status post V. fib cardiac arrest, hypertension possibly paroxysmal atrial fibrillation Review of system: Patient denies all others except for above-mentioned Past Medical History Home Meds Reported Medications Carvedilol* (Carvedilol*) 6.25 Mg Tablet, 6.25 MG PO BID, #60 TAB 07/15/18 Tamsulosin Hcl* (Tamsulosin Hcl*) 0.4 Mg Cap.er.24h, 0.4 MG PO HS, CAP 07/15/18 Pantoprazole* (Pantoprazole*) 40 Mg Tablet.dr, 40 MG PO AC BREAKFAST, TAB 07/15/18 Apixaban* (Eliquis*) 5 Mg Tablet, 5 MG PO BID, TAB 07/15/18 Sacubitril/Valsartan (Entresto 24 mg-26 mg Tablet) 1 Each Tablet, 1 EACH PO BID, TAB 07/15/18 Discontinued Reported Medications Olopatadine* (Pataday*) 0.2% - 2.5 Ml Drops, 1 DROP OP DAILY, EA INTO AFFECTED EYE(S) 12/04/14 Omeprazole* (Omeprazole*) 20 Mg Capsule.dr, 20 MG PO BID, CAP 12/04/14 Clonazepam* (Klonopin*) 0.5 Mg Tab, 0.5 MG PO TID, TAB 12/04/14 Ibuprofen* (Ibuprofen*) 600 Mg Tablet, 600 MG PO TID PRN for PAIN, TAB 12/04/14 Escitalopram Oxalate* (Lexapro*) 10 Mg Tablet, 10 MG PO DAILY, TAB 12/04/14 Neomy Sulf/Colist Sul/Hc/Thonz (Cortisporin-Tc Ear Susp) 10 Ml Drops.susp, 3 DROP OT TID 12/04/14 Discontinued Scripts Ticagrelor* (Brilinta*) 90 Mg Tablet, 90 MG PO Q12 for 30 Days, TAB Prov:ROHAN PHILIP MD 06/10/16 Amiodarone Hcl* (Amiodarone Hcl*) 400 Mg Tablet, 400 MG PO BID for 30 Days, TAB Prov:ROHAN PHILIP MD 06/10/16 Hydrochlorothiazide (Hydrochlorothiazide) 12.5 Mg Cap, 12.5 MG PO DAILY, #30 3 Refills Prov:OUMAR LOUIE 12/11/14 Lisinopril* (Zestril*) 5 Mg Tab, 2.5 MG PO DAILY, #30 3 Refills Prov:OUMAR LOUIE 12/11/14 Carvedilol* (Coreg*) 3.125 Mg Tab, 3.125 MG PO BID, #60 3 Refills Prov:OUMAR LOUIE 12/11/14 Atorvastatin Calcium* (Atorvastatin Calcium*) 20 Mg Tab, 40 MG PO DAILY@21, #30 3 Refills Prov:OUMAR LOUIE 12/11/14 Aspirin* (Aspirin* EC) 81 Mg Tabec, 81 MG PO DAILY, #120 Prov:OUMAR LOUIE 12/11/14 Medications Current Medications Heparin Sodium (Porcine) 250 ml @ 9 mls/hr ONCE STAT IV Last administered on 07/15/18at 10:04; Admin Dose 9 MLS/HR; Start 07/15/18 at 09:45; Stop 07/16/18 at 13:31 IV Flush (NS 3 ml) 3 ml PER PROTOCOL IV ; Start 07/15/18 at 12:00 Ondansetron HCl (Zofran Inj) 4 mg Q6H PRN IV NAUSEA/VOMITING; Start 07/15/18 at 12:00 Acetaminophen (Tylenol Tab) 650 mg Q6H PRN PO .PAIN 1-3 OR TEMP; Start 07/15/18 at 12:00 Morphine Sulfate (morphine) 2 mg Q4H PRN IV .PAIN 7-10; Start 07/15/18 at 12:00 Pantoprazole (Protonix Tab) 40 mg BID@06,18 PO ; Start 07/15/18 at 18:00 Atorvastatin Calcium (Lipitor) 40 mg HS PO ; Start 07/15/18 at 21:00 Allergies: Coded Allergies: azithromycin (Verified Allergy, Unknown, 07/15/18) Past Surgical History Past Surgical Hx: angioplasty Social History Alcohol Use: none Smoking Status: Former smoker Drug Use: none Exam/Review of Systems Vital Signs Vitals Vital Signs Date Temp Pulse Resp B/P (MAP) Pulse Ox O2 O2 Flow FiO2 Time Delivery Rate 07/15/18 98.1 67 22 107/80 97 Nasal 12:00 (89) Cannula 07/15/18 3.0 12:00 Exam Exam General: no acute distress HEENT: NC/AT. pupils are equal. round. NECK: NO JVD. no stridor. CV: RRR. systolic murmur; no gallop or rubs. PULM: no wheezing or rhonchi. GI: SOFT, NT, ND, no rebound or guarding Extremity: trace B/L LE edema. no clubbing. neuro: awake and alert, OX3. Psych: calm and pleasant rectal: deferred : normal male. EKG done in the emergency room initially has showed wide complex tachycardia consistent with ventricular tachycardia. Repeat EKG showed normal sinus rhythm with frequent PAC with interventricular conduction delay QRS weight is 150 ms Echocardiogram was personally reviewed which shows: Normal left ventricular wall thickness. Moderate enlargement of left ventricle cavity. Severe left ventricular systolic dysfunction. Ejection fraction is visually estimated at 15-20 %. These segments of the LV are hypokinetic mid anterior segment, apical anterior segment, apical lateral segment, anterolateral mid segment, inferior apex segment, apex and apical septum. Mitral valve leaflets appear mildly thickened. Mild mitral annular calcification. Mild mitral valve regurgitation. Normal appearance of the aortic valve. No significant aortic stenosis or insufficiency. Normal appearance of the tricuspid valve. Estimated peak PA systolic pressure 35 mmHg. There is mild tricuspid regurgitation. Dilated IVC with respiratory collapse consistent with elevated right atrial pressure. Labs Result Diagram: 07/15/18 0815 07/15/18 1349 Results 24hrs Laboratory Tests Test 07/15/18 08:15 07/15/18 12:45 07/15/18 13:49 White Blood Count 6.3 # Red Blood Count 4.94 # Hemoglobin 14.5 # Hematocrit 42.8 # Mean Corpuscular Volume 86.6 Mean Corpuscular Hemoglobin 29.4 Mean Corpuscular Hemoglobin Concent 33.9 Red Cell Distribution Width 14.5 Platelet Count 279 Mean Platelet Volume 11.0 H Immature Granulocytes % 0.300 Neutrophils % 65.8 Lymphocytes % 23.8 Monocytes % 9.6 Eosinophils % 0.3 Basophils % 0.2 Nucleated Red Blood Cells % 0.0 Immature Granulocytes # 0.020 Neutrophils # 4.1 Lymphocytes # 1.5 Monocytes # 0.6 Eosinophils # 0.0 Basophils # 0.0 Nucleated Red Blood Cells # 0.0 Prothrombin Time 16.7 H Prothrombin Time Ratio 1.3 INR International Normalized Ratio 1.34 Activated Partial Thromboplast Time 38.3 H Sodium Level 127 L 130 L Potassium Level 5.1 5.3 H Chloride Level 92 L 99 Carbon Dioxide Level 20 L 22 Anion Gap 15 H 9 # Blood Urea Nitrogen 32 H 29 H Creatinine 1.63 H 1.42 H Est Glomerular Filtrat Rate mL/min Glucose Level 154 117 Calcium Level 9.3 8.8 Total Bilirubin 1.1 Direct Bilirubin 0.00 Indirect Bilirubin 1.1 Aspartate Amino Transf (AST/SGOT) 36 Alanine Aminotransferase (ALT/SGPT) 25 Alkaline Phosphatase 67 Troponin I 1.040 *H 1.390 *H Total Protein 7.1 Albumin 4.2 Globulin 2.90 Albumin/Globulin Ratio 1.44 Lipase 60 Urine Color STRAW Urine Clarity CLEAR Urine pH 5.0 Urine Specific [place] 1.005 Urine Ketones NEGATIVE Urine Nitrite NEGATIVE Urine Bilirubin NEGATIVE Urine Urobilinogen NEGATIVE Urine Leukocyte Esterase NEGATIVE Urine Microscopic RBC 1 Urine Microscopic WBC 3 Urine Bacteria FEW A Urine Hemoglobin 1+ H Urine Osmolality 181 L Urine Random Creatinine 45.45 Urine Random Sodium < 13 L Urine Glucose NEGATIVE Urine Total Protein 19.0 H Hemoglobin A1c 5.2 Uric Acid 5.4 Creatine Kinase 579 H Creatine Kinase Index 1.1 Creatinine Kinase MB (Mass) 6.12 H B-Type Natriuretic Peptide 16099 H Medications Medications Current Medications Heparin Sodium (Porcine) 250 ml @ 9 mls/hr ONCE STAT IV Last administered on 07/15/18at 10:04; Admin Dose 9 MLS/HR; Start 07/15/18 at 09:45; Stop 07/16/18 at 13:31 IV Flush (NS 3 ml) 3 ml PER PROTOCOL IV ; Start 07/15/18 at 12:00 Ondansetron HCl (Zofran Inj) 4 mg Q6H PRN IV NAUSEA/VOMITING; Start 07/15/18 at 12:00 Acetaminophen (Tylenol Tab) 650 mg Q6H PRN PO .PAIN 1-3 OR TEMP; Start 07/15/18 at 12:00 Morphine Sulfate (morphine) 2 mg Q4H PRN IV .PAIN 7-10; Start 07/15/18 at 12:00 Pantoprazole (Protonix Tab) 40 mg BID@06,18 PO ; Start 07/15/18 at 18:00 Atorvastatin Calcium (Lipitor) 40 mg HS PO ; Start 07/15/18 at 21:00 ELIZABETH CONNELL MD Jul 15, 2018 15:02
--- NOTE | 2018-07-15 17:05 | CONS ---
DATE OF ADMISSION: 07/15/2018 DATE OF CONSULTATION: 07/15/2018 TYPE OF CONSULTATION: Nephrology. REASON FOR CONSULTATION: Acute kidney injury, hyponatremia. PHYSICIAN REQUESTING CONSULT: Michael Reis NP HISTORY OF PRESENT ILLNESS: This is a 77-year-old male with a past medical history of coronary arter y disease, history of dyslipidemia, hypertension, history of cardiac arrest who presents to the [facility] Emergency Room with generalized abdominal pain. The patient was having ongoi ng pain for the last several days. Upon arrival to the emergency room, the patient was noted to be h ypertensive with ventricular tachycardia. The patient was sedated and cardioverted. Following the p rocedure, the patient was noted to have elevated troponins and was placed on heparin drip and was bro ught into the intensive care unit. In terms of patient's renal history, the patient denies any prior history of acute kidney injury or C KD. The patient also denies any prior history of hyponatremia. The patient denies any diuretic use. Denies any hemoptysis, hematemesis or hematochezia. PAST MEDICAL HISTORY: As stated above, history of coronary artery disease, history of hypertension, history of dyslipidemia, history of cardiac arrest. PAST SURGICAL HISTORY: Status post cardiac catheterization. FAMILY HISTORY: No family history of kidney disease. SOCIAL HISTORY: Former smoker. MEDICATIONS: Have been reviewed. REVIEW OF SYSTEMS: A 14-point review of systems conducted. Pertinent positives stated in HPI, other scanlon negative. PHYSICAL EXAMINATION: VITAL SIGNS: Blood pressure is 107/80, respiration is 22, pulse is 67, temperature 98.1. HEENT: Head is normocephalic. NECK: Supple. HEART: Regular rate. LUNGS: Show diminished breath sounds at base. ABDOMEN: Soft, nontender to palpation without rebound or guarding. EXTREMITIES: Negative for clubbing, cyanosis. No edema. DERMATOLOGIC: No rashes. MUSCULOSKELETAL: No joint effusion. NEUROLOGIC: No change in exam. LABORATORY DATA: Reviewed. ASSESSMENT AND PLAN: This is a 77-year-old male who presents with: 1. Nonoliguric acute kidney injury with unknown baseline creatinine. Etiology of acute kidney injur y is secondary to hemodynamics, prerenal volume depletion. The patient's urinalysis is bland, no act tomasz sediment. The patient has a FENa of less than 1% consistent with prerenal etiology. Other contr ibuting factors include diuretics, ARB attack. Recommendation at this point is to continue the patie nt on gentle IV hydration. Monitor volume status closely. We would hold MERI inhibitor, ARB and diur etics at this time. We would otherwise continue current treatment plan, supportive care, renally dos e all meds. 2. Hyponatremia. Etiology is multifactorial secondary to volume depletion, acute kidney injury caus ing decreased free water urinary excretion. The patient's urine osmolality shows 181 mOsm/L which bowman ggests the patient is able to dilute urine. Recommendation is to give the patient a fluid challenge. We will hold thiazide diuretics to limit free water intake. Encourage a high osmolar diet and we w ill monitor serial sodium levels closely to ensure correction of no more than 10 to 12 mEq in a 24-ho ur period. 3. Hyperkalemia, likely secondary to volume depletion, ARB effects. Recommendation is to continue t he patient on IV hydration. We will place the patient on renal diet. Defer any MERI inhibitor or ARB s at this time. 4. Mineral bone disorder. Monitor calcium and phosphorus levels. 5. Arrhythmia. The patient is status post cardioversion. Continue to monitor. 6. Non ST elevation myocardial infarction. The patient remains on heparin drip. 7. Ischemic cardiomyopathy. Continue medical management. 8. Dyslipidemia. Continue statin therapy. 9. Abdominal pain, etiology is unclear. Workup is ongoing. Trend LFTs. Consider ultrasound. Cons ider a GI evaluation. Thank you, Michael, for this interesting consult. It will be a pleasure to follow the patient with yo u throughout the hospital course. Dictated By: ROLDAN BENITES DO NR/NTS Conf#: [id number] DID#: [id number] CC: VU ORELLANA MD;*EndCC*
[2018-07-15] MEDS: PANTOPRAZOLE (EC) 40 MG TAB PO SCH (18:12)
[2018-07-15] MEDS ORDERED: HEPARIN 25000 UNITS/D5W 250 ML IV SCH (20:00)
[2018-07-15] MEDS ORDERED: HEPARIN 1000 UNITS/ML 10 ML INJ IV PRN (20:00)
[2018-07-15] MEDS ORDERED: HEPARIN 1000 UNITS/ML 10 ML INJ IV SCH (20:00)
[2018-07-15] MEDS: SACUBITRIL/VALSARTAN (24mg-26mg) TABLET PO SCH (20:09)
[2018-07-15] MEDS: ATORVASTATIN 40 MG TAB PO SCH (20:13)
[2018-07-16] VITALS (30 sets, daily range): BP systolic 64–109; BP diastolic 42–98; PULSE 72–83; RESP 16–30
[2018-07-16] MEDS ORDERED: SOD CHLORIDE 0.9% 1,000 ML IV SCH (03:00)
[2018-07-16] MEDS ORDERED: SOD CHLORIDE 0.9% 500 ML IV ONE (03:00)
[2018-07-16] MEDS: PANTOPRAZOLE (EC) 40 MG TAB PO SCH ×2 (05:43→17:52)
--- NOTE | 2018-07-16 07:53 | CONS ---
Consult Date/Type/Reason Admit Date/Time Jul 15, 2018 at 09:58 Initial Consult Date 07/15/18 Requesting Provider: VANDANA CAMPOS DO Date/Time of Note DATE: 07/16/18 TIME: 07:49 Subjective Interventional cardiology follow-up progress note Subjective: Case discussed with the staff. Telemetry was reviewed. Patient has remained sinus rhythm with no more episode of ventricular tachycardia noted He denies any chest pain or pressure to me denies any palpitation to me. Discussed with patient He denies PND orthopnea to me no more abdominal pain He is a still refusing cardiac catheterization and an ICD Objective: General: no acute distress HEENT: NC/AT. pupils are equal. round. NECK: NO JVD. no stridor. CV: RRR. systolic murmur; no gallop or rubs. PULM: no wheezing or rhonchi. GI: SOFT, NT, ND, no rebound or guarding Extremity: trace B/L LE edema. no clubbing. neuro: awake and alert, OX3. Psych: calm and pleasant rectal: deferred : normal male. EKG done in the emergency room initially has showed wide complex tachycardia consistent with ventricular tachycardia. Repeat EKG showed normal sinus rhythm with frequent PAC with interventricular conduction delay QRS weight is 150 ms Echocardiogram was personally reviewed which shows: Normal left ventricular wall thickness. Moderate enlargement of left ventricle cavity. Severe left ventricular systolic dysfunction. Ejection fraction is visually estimated at 15-20 %. These segments of the LV are hypokinetic mid anterior segment, apical anterior segment, apical lateral segment, anterolateral mid segment, inferior apex segment, apex and apical septum. Mitral valve leaflets appear mildly thickened. Mild mitral annular calcification. Mild mitral valve regurgitation. Normal appearance of the aortic valve. No significant aortic stenosis or insufficiency. Normal appearance of the tricuspid valve. Estimated peak PA systolic pressure 35 mmHg. There is mild tricuspid regurgitation. Dilated IVC with respiratory collapse consistent with elevated right atrial pressure. Objective Vitals Vital Signs Date Temp Pulse Resp B/P (MAP) Pulse Ox O2 O2 Flow FiO2 Time Delivery Rate 07/16/18 98.0 75 26 80/60 (67) 97 Room Air 07:00 07/16/18 3.0 00:25 Intake and Output 07/15/18 07/15/18 07/16/18 1515:00 23:00 07:00 IntakeIntake Total 27 ml 688.5 ml 941 ml OutputOutput Total 2290 ml 2120 ml BalanceBalance 27 ml -1601.5 ml -1179 ml Results/Medications Result Diagram: 07/16/18 0603 07/16/18 0603 Results 24 hrs Laboratory Tests Test 07/15/18 08:15 07/15/18 12:45 07/15/18 13:49 07/15/18 18:23 White Blood Count 6.3 # Red Blood Count 4.94 # Hemoglobin 14.5 # Hematocrit 42.8 # Mean Corpuscular 86.6 Volume Mean Corpuscular 29.4 Hemoglobin Mean Corpuscular 33.9 Hemoglobin Concent Red Cell 14.5 Distribution Width Platelet Count 279 Mean Platelet Volume 11.0 H Immature 0.300 Granulocytes % Neutrophils % 65.8 Lymphocytes % 23.8 Monocytes % 9.6 Eosinophils % 0.3 Basophils % 0.2 Nucleated Red Blood 0.0 Cells % Immature 0.020 Granulocytes # Neutrophils # 4.1 Lymphocytes # 1.5 Monocytes # 0.6 Eosinophils # 0.0 Basophils # 0.0 Nucleated Red Blood 0.0 Cells # Prothrombin Time 16.7 H Prothrombin Time 1.3 Ratio INR International 1.34 Normalized Ratio Activated 38.3 H Partial Thromboplast Time Sodium Level 127 L 130 L Potassium Level 5.1 5.3 H Chloride Level 92 L 99 Carbon Dioxide Level 20 L 22 Anion Gap 15 H 9 # Blood Urea Nitrogen 32 H 29 H Creatinine 1.63 H 1.42 H Est Glomerular Filtrat Rate mL/min Glucose Level 154 117 Calcium Level 9.3 8.8 Total Bilirubin 1.1 Direct Bilirubin 0.00 Indirect Bilirubin 1.1 Aspartate Amino 36 Transf (AST/SGOT) Alanine 25 Aminotransferase (AL T/SGPT) Alkaline Phosphatase 67 Troponin I 1.040 *H 1.390 *H 1.480 *H Total Protein 7.1 Albumin 4.2 Globulin 2.90 Albumin/Globulin 1.44 Ratio Lipase 60 Urine Color STRAW Urine Clarity CLEAR Urine pH 5.0 Urine Specific 1.005 [place] Urine Ketones NEGATIVE Urine Nitrite NEGATIVE Urine Bilirubin NEGATIVE Urine Urobilinogen NEGATIVE Urine Leukocyte NEGATIVE Esterase Urine Microscopic 1 RBC Urine Microscopic 3 WBC Urine Bacteria FEW A Urine Hemoglobin 1+ H Urine Osmolality 181 L Urine Random 45.45 Creatinine Urine Random Sodium < 13 L Urine Glucose NEGATIVE Urine Total Protein 19.0 H Hemoglobin A1c 5.2 Uric Acid 5.4 Creatine Kinase 579 H 563 H Creatine Kinase 1.1 1.0 Index Creatinine Kinase MB 6.12 H 5.52 H (Mass) B-Type Natriuretic 79104 H Peptide Thyroid Stimulating 0.813 Hormone (TSH) Free Thyroxine 1.99 Test 07/15/18 18:39 07/16/18 00:27 07/16/18 02:37 07/16/18 06:03 Activated 46.2 H 86.5 *H Partial Thromboplast Time Creatine Kinase 414 H Creatine Kinase 0.8 Index Creatinine Kinase MB 3.18 H 2.95 H (Mass) Troponin I 1.930 *H 1.690 *H White Blood Count 5.6 Red Blood Count 4.45 L Hemoglobin 13.1 L Hematocrit 38.8 L Mean Corpuscular 87.2 Volume Mean Corpuscular 29.4 Hemoglobin Mean Corpuscular 33.8 Hemoglobin Concent Red Cell 14.8 H Distribution Width Platelet Count 235 Mean Platelet Volume 11.2 H Immature 0.400 Granulocytes % Neutrophils % 59.3 Lymphocytes % 26.7 Monocytes % 12.8 H Eosinophils % 0.4 Basophils % 0.4 Nucleated Red Blood 0.0 Cells % Immature 0.020 Granulocytes # Neutrophils # 3.3 Lymphocytes # 1.5 Monocytes # 0.7 Eosinophils # 0.0 Basophils # 0.0 Nucleated Red Blood 0.0 Cells # Sodium Level 140 Potassium Level 4.3 Chloride Level 107 Carbon Dioxide Level 25 Anion Gap 8 Blood Urea Nitrogen 21 H Creatinine 1.27 H Est Glomerular Filtrat Rate mL/min Glucose Level 96 Calcium Level 8.5 Total Bilirubin 0.6 Direct Bilirubin 0.00 Indirect Bilirubin 0.6 Aspartate Amino 39 Transf (AST/SGOT) Alanine 28 Aminotransferase (AL T/SGPT) Alkaline Phosphatase 49 Total Protein 6.0 #L Albumin 3.2 #L Globulin 2.80 Albumin/Globulin 1.14 Ratio Triglycerides Level 78 Cholesterol Level 83 L LDL Cholesterol, 31 Calculated HDL Cholesterol 36 Cholesterol/HDL 2.3 Ratio Home Meds Reported Medications Carvedilol* (Carvedilol*) 6.25 Mg Tablet, 6.25 MG PO BID, #60 TAB 07/15/18 Tamsulosin Hcl* (Tamsulosin Hcl*) 0.4 Mg Cap.er.24h, 0.4 MG PO HS, CAP 07/15/18 Pantoprazole* (Pantoprazole*) 40 Mg Tablet.dr, 40 MG PO AC BREAKFAST, TAB 07/15/18 Apixaban* (Eliquis*) 5 Mg Tablet, 5 MG PO BID, TAB 07/15/18 Sacubitril/Valsartan (Entresto 24 mg-26 mg Tablet) 1 Each Tablet, 1 EACH PO BID, TAB 07/15/18 Discontinued Reported Medications Olopatadine* (Pataday*) 0.2% - 2.5 Ml Drops, 1 DROP OP DAILY, EA INTO AFFECTED EYE(S) 12/04/14 Omeprazole* (Omeprazole*) 20 Mg Capsule.dr, 20 MG PO BID, CAP 12/04/14 Clonazepam* (Klonopin*) 0.5 Mg Tab, 0.5 MG PO TID, TAB 12/04/14 Ibuprofen* (Ibuprofen*) 600 Mg Tablet, 600 MG PO TID PRN for PAIN, TAB 12/04/14 Escitalopram Oxalate* (Lexapro*) 10 Mg Tablet, 10 MG PO DAILY, TAB 12/04/14 Neomy Sulf/Colist Sul/Hc/Thonz (Cortisporin-Tc Ear Susp) 10 Ml Drops.susp, 3 DROP OT TID 12/04/14 Discontinued Scripts Ticagrelor* (Brilinta*) 90 Mg Tablet, 90 MG PO Q12 for 30 Days, TAB Prov:ROHAN PHILIP MD 06/10/16 Amiodarone Hcl* (Amiodarone Hcl*) 400 Mg Tablet, 400 MG PO BID for 30 Days, TAB Prov:ROHAN PHILIP MD 06/10/16 Hydrochlorothiazide (Hydrochlorothiazide) 12.5 Mg Cap, 12.5 MG PO DAILY, #30 3 Refills Prov:OUMAR LOUIE 12/11/14 Lisinopril* (Zestril*) 5 Mg Tab, 2.5 MG PO DAILY, #30 3 Refills Prov:OUMAR LOUIE 12/11/14 Carvedilol* (Coreg*) 3.125 Mg Tab, 3.125 MG PO BID, #60 3 Refills Prov:OUMAR LOUIE 12/11/14 Atorvastatin Calcium* (Atorvastatin Calcium*) 20 Mg Tab, 40 MG PO DAILY@21, #30 3 Refills Prov:OUMAR LOUIE 12/11/14 Aspirin* (Aspirin* EC) 81 Mg Tabec, 81 MG PO DAILY, #120 Prov:OUMAR LOUIE 12/11/14 Medications Current Medications Heparin Sodium (Porcine) 250 ml @ 9 mls/hr ONCE STAT IV Last administered on 07/15/18at 10:04; Admin Dose 9 MLS/HR; Start 07/15/18 at 09:45; Stop 07/16/18 at 13:31 IV Flush (NS 3 ml) 3 ml PER PROTOCOL IV ; Start 07/15/18 at 12:00 Ondansetron HCl (Zofran Inj) 4 mg Q6H PRN IV NAUSEA/VOMITING; Start 07/15/18 at 12:00 Acetaminophen (Tylenol Tab) 650 mg Q6H PRN PO .PAIN 1-3 OR TEMP; Start 07/15/18 at 12:00 Morphine Sulfate (morphine) 2 mg Q4H PRN IV .PAIN 7-10; Start 07/15/18 at 12:00 Pantoprazole (Protonix Tab) 40 mg BID@06,18 PO Last administered on 07/16/18at 05:43; Admin Dose 40 MG; Start 07/15/18 at 18:00 Atorvastatin Calcium (Lipitor) 40 mg HS PO ; Start 07/15/18 at 21:00 Aspirin (Halfprin) 81 mg DAILY PO ; Start 07/16/18 at 09:00 Carvedilol (Coreg) 6.25 mg BID PO ; Start 07/15/18 at 21:00 Sacubitril/ Valsartan (Entresto 24 Mg-26 Mg) 1 tab BID PO Last administered on 07/15/18at 20:09; Admin Dose 1 TAB; Start 07/15/18 at 21:00 Heparin Sodium (Porcine) 250 ml @ 12 mls/hr Q24H IV Last administered on 07/15/18at 20:41; Admin Dose 12 MLS/HR; Start 07/15/18 at 20:00 Heparin Sodium (Porcine) (Heparin (1000 Units/ml)) PRN PRN IV PENDING LAB VALUE; Start 07/15/18 at 20:00 Sodium Chloride 1,000 ml @ 80 mls/hr [id number] IV Last administered on 07/16/18at 04:01; Admin Dose 80 MLS/HR; Start 07/16/18 at 03:00 Assessment/Plan Hospital Course (Demo Recall) Ventricular tachycardia requiring emergent/urgent cardioversion Severe ischemic cardiomyopathy ejection fraction of less than 20% Non-ST elevation myocardial infarction History of hypertension dyslipidemia Acute renal insufficiency Possible cholecystitis Recommendations: Patient has refused any procedure including coronary angiography and ICD placement and is only requesting medical therapy, but he still full code We will continue medical therapy only at this point given his wishes Coreg will be continued increase as tolerated amiodarone p.o. for now Statin Entresto will be resumed Diuresis as needed but currently does not appear to be fluid overloaded Okay to transfer out of ICU to telemetry Patient is at high risk of recurrent VT but is refusing procedures including a ngiography and ICD Thank you for his referral. We will continue to follow along with you ELIZABETH CONNELL MD [facility] ELIZABETH CONNELL MD Jul 16, 2018 07:53
[2018-07-16] MEDS: ASPIRIN (EC) 81 MG TAB PO SCH (08:17)
[2018-07-16] MEDS ORDERED: SACUBITRIL/VALSARTAN (24mg-26mg) TABLET PO SCH (09:00)
[2018-07-16] MEDS: SACUBITRIL/VALSARTAN (24mg-26mg) TABLET PO SCH ×2 (09:00→20:14)
--- NOTE | 2018-07-16 09:07 | PN ---
Date/Time of Note Date/Time of Note DATE: 07/16/18 TIME: 09:06 Assessment/Plan VTE Prophylaxis Risk score (from Ns)>0 risk: 5 SCD applied (from Nsg): Yes Pharmacological prophylaxis: heparin Lines/Catheters IV Catheter Type (from [facility]): Peripheral IV Urinary Cath still in place: No Assessment/Plan Hospital Course SUBJECTIVE: Denies any chest pain, dyspnea, or palpitations. Denies any abdominal pain. Tolerating regular consistency diet. Refusing cardiac cath. Verbalizing "every thing is normal". OBJECTIVE: Physical Exam General: Adequately build 77 year-old male lying in bed in no apparent distress. HEENT: Normocephalic, atraumatic. Eyes: Anicteric sclerae, conjunctivae clear. ENT: Nasal septum midline, oral mucosa moist. Neck supple. Respiratory: Bilaterally clear breath sounds. No use of accessory muscles of respiration. No adventitious breath sounds. Cardiovascular: S1, S2 heard. Regular rate and rhythm. Abdomen: Soft, nontender, and nondistended. Bowel sounds positive in all 4 quadrants. Genitourinary: Deferred. Extremities: No cyanosis, no clubbing, no edema. Peripheral pulses palpable. Neurologic: Cranial nerves II through XII grossly intact. The patient is awake, alert, and oriented. Skin: Normal skin turgor. No skin rashes. Labs & Vitals per chart ASSESSMENT & PLAN 77-year-old male with prior history of cardiac arrest with STEMI in 2014 with LAD stent placement, ischemic cardiomyopathy, dyslipidemia, hypertension, and ventricular tachycardia, who came to the emergency room with chief complaint of abdominal pain, who was found to have evidence of underlying unstable ventricular tachycardia who was cardioverted in the emergency room to sinus rhythm and was admitted to inpatient setting for further treatment and evaluation. 1. Unstable ventricular tachycardia. -Status post cardioversion in the emergency room. -Cardiology following. -Continue telemetry monitoring. -Continue beta-blockers. -To be started on amiodarone. 2. NSTEMI. -Patient refusing left heart catheterization. -Continue aspirin. -On heparin drip. 3. Acute kidney injury. -Nonoliguric -Etiology unclear. -Hold nephrotoxic medications. -Adequately hydrate the patient. -Nephrology following. 4. Hyponatremia. -Etiology unclear. -Nephrology following. -Correct sodium levels gradually. 5. Ischemic cardiomyopathy. -Ejection fraction of 15-20%. -Continue beta-blockers and Entresto. 6. Dyslipidemia. -Continue statins. 7. Abdominal pain. -Etiology unclear. -Abdominal imaging showing evidence of cholelithiasis. -LFTs within normal limits. -Right upper quadrant ultrasound showing abnormal thickening of the gallbladder wall, but no evidence of any biliary duct dilatation. -Denies any abdominal pain at this time. -Patient refusing all invasive procedures. -Not a surgical candidate. Nevertheless, the patient is asymptomatic now and LFTs are within normal limits. No evidence of any underlying infectious process. 8. Fluids, electrolytes, and nutrition. -Low-cholesterol diet. 9. DVT prophylaxis. -On heparin drip. 10. Plan. -Continue aspirin. -Continue to up titrate cardiac medications as the blood pressure allows. -Transfer the patient to telemetry floor. -DC heparin gtt. -Resume Eliquis. -Patient at high risk for recurrent ventricular tachycardia. Patient refusing left heart catheterization and ICD placement. The patient was seen in collaboration with Dr. Shah. Critical care time: 35 minutes. Result Diagram: 07/16/18 0607/16/18 06 Results 24hrs Laboratory Tests Test 07/15/18 12:45 07/15/18 13:49 07/15/18 18:23 07/15/18 18:39 Urine Color STRAW Urine Clarity CLEAR Urine pH 5.0 Urine Specific 1.005 [place] Urine Ketones NEGATIVE Urine Nitrite NEGATIVE Urine Bilirubin NEGATIVE Urine Urobilinogen NEGATIVE Urine Leukocyte NEGATIVE Esterase Urine Microscopic 1 RBC Urine Microscopic 3 WBC Urine Bacteria FEW A Urine Hemoglobin 1+ H Urine Osmolality 181 L Urine Random 45.45 Creatinine Urine Random Sodium < 13 L Urine Glucose NEGATIVE Urine Total Protein 19.0 H Sodium Level 130 L Potassium Level 5.3 H Chloride Level 99 Carbon Dioxide Level 22 Anion Gap 9 # Blood Urea Nitrogen 29 H Creatinine 1.42 H Est Glomerular Filtrat Rate mL/min Glucose Level 117 Hemoglobin A1c 5.2 Uric Acid 5.4 Calcium Level 8.8 Creatine Kinase 579 H 563 H Creatine Kinase 1.1 1.0 Index Creatinine Kinase MB 6.12 H 5.52 H (Mass) Troponin I 1.390 *H 1.480 *H B-Type Natriuretic 22086 H Peptide Thyroid Stimulating 0.813 Hormone (TSH) Free Thyroxine 1.99 Activated 46.2 H Partial Thromboplast Time Test 07/16/18 00:27 07/16/18 02:37 07/16/18 06:03 Creatine Kinase 414 H Creatine Kinase 0.8 Index Creatinine Kinase MB 3.18 H 2.95 H (Mass) Troponin I 1.930 *H 1.690 *H Activated 86.5 *H Partial Thromboplast Time White Blood Count 5.6 Red Blood Count 4.45 L Hemoglobin 13.1 L Hematocrit 38.8 L Mean Corpuscular 87.2 Volume Mean Corpuscular 29.4 Hemoglobin Mean Corpuscular 33.8 Hemoglobin Concent Red Cell 14.8 H Distribution Width Platelet Count 235 Mean Platelet Volume 11.2 H Immature 0.400 Granulocytes % Neutrophils % 59.3 Lymphocytes % 26.7 Monocytes % 12.8 H Eosinophils % 0.4 Basophils % 0.4 Nucleated Red Blood 0.0 Cells % Immature 0.020 Granulocytes # Neutrophils # 3.3 Lymphocytes # 1.5 Monocytes # 0.7 Eosinophils # 0.0 Basophils # 0.0 Nucleated Red Blood 0.0 Cells # Sodium Level 140 Potassium Level 4.3 Chloride Level 107 Carbon Dioxide Level 25 Anion Gap 8 Blood Urea Nitrogen 21 H Creatinine 1.27 H Est Glomerular Filtrat Rate mL/min Glucose Level 96 Calcium Level 8.5 Phosphorus Level 3.0 Magnesium Level 2.2 Total Bilirubin 0.6 Direct Bilirubin 0.00 Indirect Bilirubin 0.6 Aspartate Amino 39 Transf (AST/SGOT) Alanine 28 Aminotransferase (AL T/SGPT) Alkaline Phosphatase 49 Total Protein 6.0 #L Albumin 3.2 #L Globulin 2.80 Albumin/Globulin 1.14 Ratio Triglycerides Level 78 Cholesterol Level 83 L LDL Cholesterol, 31 Calculated HDL Cholesterol 36 Cholesterol/HDL 2.3 Ratio Exam/Review of Systems Exam Vitals Vital Signs Date Temp Pulse Resp B/P (MAP) Pulse Ox O2 O2 Flow FiO2 Time Delivery Rate 07/16/18 98.1 76 22 85/68 (74) 96 Room Air 08:00 07/16/18 3.0 00:25 Intake and Output 07/15/18 07/15/18 07/16/18 1515:00 23:00 07:00 IntakeIntake Total 27 ml 688.5 ml 941 ml OutputOutput Total 2290 ml 2120 ml BalanceBalance 27 ml -1601.5 ml -1179 ml Results Results 24hrs Laboratory Tests Test 07/15/18 12:45 07/15/18 13:49 07/15/18 18:23 07/15/18 18:39 Urine Color STRAW Urine Clarity CLEAR Urine pH 5.0 Urine Specific 1.005 [place] Urine Ketones NEGATIVE Urine Nitrite NEGATIVE Urine Bilirubin NEGATIVE Urine Urobilinogen NEGATIVE Urine Leukocyte NEGATIVE Esterase Urine Microscopic 1 RBC Urine Microscopic 3 WBC Urine Bacteria FEW A Urine Hemoglobin 1+ H Urine Osmolality 181 L Urine Random 45.45 Creatinine Urine Random Sodium < 13 L Urine Glucose NEGATIVE Urine Total Protein 19.0 H Sodium Level 130 L Potassium Level 5.3 H Chloride Level 99 Carbon Dioxide Level 22 Anion Gap 9 # Blood Urea Nitrogen 29 H Creatinine 1.42 H Est Glomerular Filtrat Rate mL/min Glucose Level 117 Hemoglobin A1c 5.2 Uric Acid 5.4 Calcium Level 8.8 Creatine Kinase 579 H 563 H Creatine Kinase 1.1 1.0 Index Creatinine Kinase MB 6.12 H 5.52 H (Mass) Troponin I 1.390 *H 1.480 *H B-Type Natriuretic 83955 H Peptide Thyroid Stimulating 0.813 Hormone (TSH) Free Thyroxine 1.99 Activated 46.2 H Partial Thromboplast Time Test 07/16/18 00:27 07/16/18 02:37 07/16/18 06:03 Creatine Kinase 414 H Creatine Kinase 0.8 Index Creatinine Kinase MB 3.18 H 2.95 H (Mass) Troponin I 1.930 *H 1.690 *H Activated 86.5 *H Partial Thromboplast Time White Blood Count 5.6 Red Blood Count 4.45 L Hemoglobin 13.1 L Hematocrit 38.8 L Mean Corpuscular 87.2 Volume Mean Corpuscular 29.4 Hemoglobin Mean Corpuscular 33.8 Hemoglobin Concent Red Cell 14.8 H Distribution Width Platelet Count 235 Mean Platelet Volume 11.2 H Immature 0.400 Granulocytes % Neutrophils % 59.3 Lymphocytes % 26.7 Monocytes % 12.8 H Eosinophils % 0.4 Basophils % 0.4 Nucleated Red Blood 0.0 Cells % Immature 0.020 Granulocytes # Neutrophils # 3.3 Lymphocytes # 1.5 Monocytes # 0.7 Eosinophils # 0.0 Basophils # 0.0 Nucleated Red Blood 0.0 Cells # Sodium Level 140 Potassium Level 4.3 Chloride Level 107 Carbon Dioxide Level 25 Anion Gap 8 Blood Urea Nitrogen 21 H Creatinine 1.27 H Est Glomerular Filtrat Rate mL/min Glucose Level 96 Calcium Level 8.5 Phosphorus Level 3.0 Magnesium Level 2.2 Total Bilirubin 0.6 Direct Bilirubin 0.00 Indirect Bilirubin 0.6 Aspartate Amino 39 Transf (AST/SGOT) Alanine 28 Aminotransferase (AL T/SGPT) Alkaline Phosphatase 49 Total Protein 6.0 #L Albumin 3.2 #L Globulin 2.80 Albumin/Globulin 1.14 Ratio Triglycerides Level 78 Cholesterol Level 83 L LDL Cholesterol, 31 Calculated HDL Cholesterol 36 Cholesterol/HDL 2.3 Ratio Medications Medication Current Medications Heparin Sodium (Porcine) 250 ml @ 9 mls/hr ONCE STAT IV Last administered on at 10:04; Admin Dose 9 MLS/HR; Start 07/15/18 at 09:45; Stop 07/16/18 at 13:31 IV Flush (NS 3 ml) 3 ml PER PROTOCOL IV ; Start 07/15/18 at 12:00 Ondansetron HCl (Zofran Inj) 4 mg Q6H PRN IV NAUSEA/VOMITING; Start 07/15/18 at 12:00 Acetaminophen (Tylenol Tab) 650 mg Q6H PRN PO .PAIN 1-3 OR TEMP; Start 07/15/18 at 12:00 Morphine Sulfate (morphine) 2 mg Q4H PRN IV .PAIN 7-10; Start 07/15/18 at 12:00 Pantoprazole (Protonix Tab) 40 mg BID@06,18 PO Last administered on 07/16/18at 05:43; Admin Dose 40 MG; Start 07/15/18 at 18:00 Atorvastatin Calcium (Lipitor) 40 mg HS PO ; Start 07/15/18 at 21:00 Aspirin (Halfprin) 81 mg DAILY PO Last administered on 07/16/18at 08:17; Admin Dose 81 MG; Start 07/16/18 at 09:00 Carvedilol (Coreg) 6.25 mg BID PO ; Start 07/15/18 at 21:00 Sacubitril/ Valsartan (Entresto 24 Mg-26 Mg) 1 tab BID PO Last administered on 07/15/18at 20:09; Admin Dose 1 TAB; Start 07/15/18 at 21:00 Heparin Sodium (Porcine) 250 ml @ 12 mls/hr Q24H IV Last administered on at 20:41; Admin Dose 12 MLS/HR; Start 07/15/18 at 20:00 Heparin Sodium (Porcine) (Heparin (1000 Units/ml)) PRN PRN IV PENDING LAB VALUE; Start 07/15/18 at 20:00 Sodium Chloride 1,000 ml @ 80 mls/hr [id number] IV Last administered on 07/16/18at 04:01; Admin Dose 80 MLS/HR; Start 07/16/18 at 03:00 ELLY CAMPBELL NP Jul 16, 2018 09:07
[2018-07-16] MEDS: APIXABAN 5 MG TABLET PO SCH ×2 (10:45→20:11)
--- NOTE | 2018-07-16 13:23 | PN ---
DATE: 07/16/2018 SUBJECTIVE: The patient remained hypotensive overnight. No acute events noted. No hemoptysis, marcelino temesis, hematochezia. OBJECTIVE: VITAL SIGNS: Blood pressure is 85/68, respiratory rate 22, pulse 76, temperature 98.1. HEENT: Head is normocephalic. NECK: Supple. HEART: Regular rate. LUNGS: Show diminished breath sounds at the base. ABDOMEN: Soft, nontender to palpation without rebound or guarding. EXTREMITIES: Negative for clubbing, cyanosis, no edema. DERMATOLOGIC: No rashes. MUSCULOSKELETAL: No joint effusion. NEUROLOGIC: No change in exam. MEDICATIONS: Reviewed. LABORATORY DATA: Shows sodium 140, BUN 21, creatinine 1.27. White count 5.6, hemoglobin 13.1, plate let count 235. Patient's urinalysis, urine osmolarities were reviewed. IMAGING: Chest x-ray was reviewed. ASSESSMENT AND PLAN: 1. Nonoliguric acute kidney injury with unknown baseline creatinine. Etiology is secondary to hemod ynamics, volume depletion. The patient's renal function has improved with IV hydration. At this poi nt, continue current treatment plan. Continue IV hydration. Continue supportive care, renally dose all meds. Defer any MERI inhibitor ARB at this time. 2. Hypernatremia. Etiology is secondary to volume depletion. The patient's sodium levels have impr deidra with IV hydration. We will continue to monitor. 3. Hyperkalemia. Etiology is secondary to volume depletion, ARB effect. The patient's potassium le vels have normalized. Continue to monitor. Continue low-potassium diet. 4. Mineral bone disorder. Monitor calcium and phosphorus levels. 5. Arrhythmia. The patient is status post cardioversion. Continue to monitor. 6. Non-ST elevation myocardial infarction. The patient remains on heparin drip pending possible car diac catheterization. 7. History of ischemic cardiomyopathy. The patient is currently compensated. He appears more hyper volemic. Monitor closely on IV fluids. 8. Dyslipidemia. Continue statin therapy. 9. Abdominal pain. Etiology is unclear. Workup ongoing. Continue to monitor. Dictated By: ROLDAN BENITES DO NR/NTS Conf#: [id number] DID#: [id number] CC: VU ORELLANA MD;*EndCC*
[2018-07-16] MEDS: ATORVASTATIN 40 MG TAB PO SCH (20:13)
[2018-07-17] VITALS: PULSE 82
[2018-07-17 03:56] VITALS: BP 94/53; PULSE 75; RESP 20
[2018-07-17 04:00] VITALS: PULSE 75
[2018-07-17] MEDS: PANTOPRAZOLE (EC) 40 MG TAB PO SCH (05:35)
[2018-07-17 07:32] VITALS: BP 92/57; PULSE 72; RESP 19
[2018-07-17 08:12] VITALS: PULSE 78
[2018-07-17] MEDS ORDERED: MAGNESIUM SULFATE 2 GM/50 ML 50 ML IVPB ONE (08:30)
--- NOTE | 2018-07-17 08:44 | CONS ---
Consult Date/Type/Reason Admit Date/Time Jul 15, 2018 at 09:58 Initial Consult Date 07/15/18 Requesting Provider: VANDANA CAMPOS DO Date/Time of Note DATE: 07/17/18 TIME: 08:27 Subjective Interventional cardiology follow-up progress note Subjective: Case discussed with the staff. Telemetry was reviewed. Patient has remained sinus rhythm with no more episode of ventricular tachycardia noted He denies any chest pain or pressure to me denies any palpitation to me. Discussed with patient He denies PND orthopnea to me no more abdominal pain He is a still refusing cardiac catheterization and an ICD pt has been intermittently hypotensive and had to hold BP meds intermittently. Objective: General: no acute distress HEENT: NC/AT. pupils are equal. round. NECK: NO JVD. no stridor. CV: RRR. systolic murmur; no gallop or rubs. PULM: no wheezing or rhonchi. GI: SOFT, NT, ND, no rebound or guarding Extremity: trace B/L LE edema. no clubbing. neuro: awake and alert, OX3. Psych: calm and pleasant rectal: deferred : normal male. EKG done in the emergency room initially has showed wide complex tachycardia consistent with ventricular tachycardia. Repeat EKG showed normal sinus rhythm with frequent PAC with interventricular conduction delay QRS weight is 150 ms Echocardiogram was personally reviewed which shows: Normal left ventricular wall thickness. Moderate enlargement of left ventricle cavity. Severe left ventricular systolic dysfunction. Ejection fraction is visually estimated at 15-20 %. These segments of the LV are hypokinetic mid anterior segment, apical anterior segment, apical lateral segment, anterolateral mid segment, inferior apex segment, apex and apical septum. Mitral valve leaflets appear mildly thickened. Mild mitral annular calcification. Mild mitral valve regurgitation. Normal appearance of the aortic valve. No significant aortic stenosis or insufficiency. Normal appearance of the tricuspid valve. Estimated peak PA systolic pressure 35 mmHg. There is mild tricuspid regurgitation. Dilated IVC with respiratory collapse consistent with elevated right atrial pressure. Objective Vitals Vital Signs Date Temp Pulse Resp B/P (MAP) Pulse Ox O2 O2 Flow FiO2 Time Delivery Rate 07/17/18 78 08:12 07/17/18 97.9 19 92/57 (69) 95 07:32 07/17/18 Room Air 03:56 07/16/18 3.0 00:25 Intake and Output 07/16/18 07/16/18 07/17/18 1414:59 22:59 06:59 IntakeIntake Total 1324 ml 700 ml OutputOutput Total 580 ml 180 ml 600 ml BalanceBalance 744 ml -180 ml 100 ml Results/Medications Result Diagram: 07/17/1861807/17/18618 Results 24 hrs Laboratory Tests Test 07/16/18 09:47 07/17/18 06:19 Activated Partial Thromboplast Time 79.6 *H White Blood Count 4.4 #L Red Blood Count 3.95 L Hemoglobin 11.6 L Hematocrit 35.0 L Mean Corpuscular Volume 88.6 Mean Corpuscular Hemoglobin 29.4 Mean Corpuscular Hemoglobin Concent 33.1 Red Cell Distribution Width 14.6 H Platelet Count 219 Mean Platelet Volume 10.9 H Immature Granulocytes % 0.500 H Neutrophils % 49.9 Lymphocytes % 33.2 Monocytes % 12.7 H Eosinophils % 3.0 Basophils % 0.7 Nucleated Red Blood Cells % 0.0 Immature Granulocytes # 0.020 Neutrophils # 2.2 Lymphocytes # 1.5 Monocytes # 0.6 Eosinophils # 0.1 Basophils # 0.0 Nucleated Red Blood Cells # 0.0 Sodium Level 138 Potassium Level 4.2 Chloride Level 106 Carbon Dioxide Level 26 Anion Gap 6 Blood Urea Nitrogen 24 H Creatinine 1.21 Est Glomerular Filtrat Rate mL/min Glucose Level 84 Calcium Level 8.3 L Phosphorus Level 2.8 Magnesium Level 1.9 Creatine Kinase 145 # Creatine Kinase Index 0.6 Creatinine Kinase MB (Mass) 0.86 Troponin I 0.986 *H Home Meds Reported Medications Carvedilol* (Carvedilol*) 6.25 Mg Tablet, 6.25 MG PO BID, #60 TAB 07/15/18 Tamsulosin Hcl* (Tamsulosin Hcl*) 0.4 Mg Cap.er.24h, 0.4 MG PO HS, CAP 07/15/18 Pantoprazole* (Pantoprazole*) 40 Mg Tablet.dr, 40 MG PO AC BREAKFAST, TAB 07/15/18 Apixaban* (Eliquis*) 5 Mg Tablet, 5 MG PO BID, TAB 07/15/18 Sacubitril/Valsartan (Entresto 24 mg-26 mg Tablet) 1 Each Tablet, 1 EACH PO BID, TAB 07/15/18 Discontinued Reported Medications Olopatadine* (Pataday*) 0.2% - 2.5 Ml Drops, 1 DROP OP DAILY, EA INTO AFFECTED EYE(S) 12/04/14 Omeprazole* (Omeprazole*) 20 Mg Capsule.dr, 20 MG PO BID, CAP 12/04/14 Clonazepam* (Klonopin*) 0.5 Mg Tab, 0.5 MG PO TID, TAB 12/04/14 Ibuprofen* (Ibuprofen*) 600 Mg Tablet, 600 MG PO TID PRN for PAIN, TAB 12/04/14 Escitalopram Oxalate* (Lexapro*) 10 Mg Tablet, 10 MG PO DAILY, TAB 12/04/14 Neomy Sulf/Colist Sul/Hc/Thonz (Cortisporin-Tc Ear Susp) 10 Ml Drops.susp, 3 DROP OT TID 12/04/14 Discontinued Scripts Ticagrelor* (Brilinta*) 90 Mg Tablet, 90 MG PO Q12 for 30 Days, TAB Prov:ROHAN PHILIP MD 06/10/16 Amiodarone Hcl* (Amiodarone Hcl*) 400 Mg Tablet, 400 MG PO BID for 30 Days, TAB Prov:ROHAN PHILIP MD 06/10/16 Hydrochlorothiazide (Hydrochlorothiazide) 12.5 Mg Cap, 12.5 MG PO DAILY, #30 3 Refills Prov:OUMAR LOUIE 12/11/14 Lisinopril* (Zestril*) 5 Mg Tab, 2.5 MG PO DAILY, #30 3 Refills Prov:OUMAR LOUIE 12/11/14 Carvedilol* (Coreg*) 3.125 Mg Tab, 3.125 MG PO BID, #60 3 Refills Prov:OUMAR LOUIE 12/11/14 Atorvastatin Calcium* (Atorvastatin Calcium*) 20 Mg Tab, 40 MG PO DAILY@21, #30 3 Refills Prov:OUMAR LOUIE 12/11/14 Aspirin* (Aspirin* EC) 81 Mg Tabec, 81 MG PO DAILY, #120 Prov:OUMAR LOUIE 12/11/14 Medications Current Medications IV Flush (NS 3 ml) 3 ml PER PROTOCOL IV ; Start 07/15/18 at 12:00 Ondansetron HCl (Zofran Inj) 4 mg Q6H PRN IV NAUSEA/VOMITING; Start 07/15/18 at 12:00 Acetaminophen (Tylenol Tab) 650 mg Q6H PRN PO .PAIN 1-3 OR TEMP; Start 07/15/18 at 12:00 Morphine Sulfate (morphine) 2 mg Q4H PRN IV .PAIN 7-10; Start 07/15/18 at 12:00 Pantoprazole (Protonix Tab) 40 mg BID@06,18 PO Last administered on 07/17/18at 05:35; Admin Dose 40 MG; Start 07/15/18 at 18:00 Atorvastatin Calcium (Lipitor) 40 mg HS PO ; Start 07/15/18 at 21:00 Aspirin (Halfprin) 81 mg DAILY PO Last administered on 07/16/18at 08:17; Admin Dose 81 MG; Start 07/16/18 at 09:00 Carvedilol (Coreg) 6.25 mg BID PO Last administered on 07/16/18at 20:11; Admin Dose 6.25 MG; Start 07/15/18 at 21:00 Sacubitril/ Valsartan (Entresto 24 Mg-26 Mg) 1 tab BID PO Last administered on 07/15/18at 20:09; Admin Dose 1 TAB; Start 07/15/18 at 21:00 Apixaban (Eliquis) 5 mg BID PO Last administered on 07/16/18at 20:11; Admin Dose 5 MG; Start 07/16/18 at 10:30 Magnesium Sulfate 50 ml @ 25 mls/hr ONCE ONCE IVPB ; Start 07/17/18 at 08:30; Stop 07/17/18 at 10:29 Assessment/Plan Hospital Course (Demo Recall) Ventricular tachycardia requiring emergent/urgent cardioversion Severe ischemic cardiomyopathy ejection fraction of less than 20% Non-ST elevation myocardial infarction History of hypertension dyslipidemia Acute renal insufficiency Possible cholecystitis Recommendations: Patient has refused any procedure including coronary angiography and ICD placem ent and is only requesting medical therapy, but he still full code We will continue medical therapy only at this point given his wishes dec coreg for Low BP cont amiodarone p.o. 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 ok to dc home since pt is refusing any procedures Thank you for his referral. We will continue to follow along with you ELIZABETH CONNELL MD [facility] ELIZABETH CONNELL MD Jul 17, 2018 08:43
--- NOTE | 2018-07-17 08:52 | PN ---
DATE: 07/17/2018 SUBJECTIVE: The patient was transferred from the intensive care unit to telemetry. No acute events noted overnight. No hemoptysis, hematemesis or hematochezia. OBJECTIVE: VITAL SIGNS: Blood pressure is 92/87, respirations 19, pulse 72, temperature 97.9. HEENT: Head is normocephalic. NECK: Supple. HEART: Regular rate. LUNGS: Show diminished breath sounds at the base. ABDOMEN: Soft, nontender to palpation without rebound or guarding. EXTREMITIES: Negative for clubbing, cyanosis, no edema. DERMATOLOGIC: No rashes. MUSCULOSKELETAL: No joint effusion. NEUROLOGIC: No change in exam. MEDICATIONS: The patient's medications have been reviewed. MICROBIOLOGY: Cultures have been reviewed. LABORATORY DATA: Reviewed. ASSESSMENT AND PLAN: 1. Nonoliguric acute kidney injury. Etiology is felt to be secondary to hemodynamics, volume deplet ion. The patient's renal function has improved after a fluid challenge and holding diuretic therapy. Recommendation is to continue current medical management. Continue supportive care, renally dose a ll medicines, monitor renal function closely as Entresto has been resumed. 2. Hypernatremia, etiology is secondary to volume depletion, resolved. Continue to monitor. 3. Hyperkalemia, etiology is secondary to volume depletion and ARB effect. Potassium levels have no rmalized. Monitor closely on Entresto. 4. Mineral bone disorder, monitor calcium and phosphorus levels. 5. Ischemic cardiomyopathy. The patient is currently compensated. We will monitor closely. No nee d for diuretic therapy at this time. The patient has been resumed on Entresto. 6. Arrhythmia, status post cardioversion. Continue to monitor. 7. Non-ST elevation myocardial infarction. Continue medical management. The patient is deferring c ardiac catheterization. 8. Dyslipidemia. Continue statin therapy. Dictated By: ROLDAN BENITES DO NR/NTS Conf#: [id number] DID#: [id number] CC: ROLDAN BENITES DO; VU ORELLANA MD;*EndCC*
[2018-07-17] MEDS: SACUBITRIL/VALSARTAN (24mg-26mg) TABLET PO SCH (09:00)
[2018-07-17] MEDS ORDERED: AMIODARONE 200 MG TAB PO SCH (09:00)
[2018-07-17] MEDS: APIXABAN 5 MG TABLET PO SCH (09:04)
[2018-07-17] MEDS: ASPIRIN (EC) 81 MG TAB PO SCH (09:04)
[2018-07-17 11:16] VITALS: BP 100/66; PULSE 71; RESP 19
[2018-07-17] MEDS ORDERED: AMIO200T4 PO (12:04)
[2018-07-17] MEDS ORDERED: PANT40TA4 PO (12:04)
[2018-07-17] MEDS ORDERED: ASPI-1044 PO (12:04)
[2018-07-17] MEDS ORDERED: CARV3.1260 PO (12:04)
[2018-07-17] MEDS ORDERED: ATOR40TA68 PO (12:04)
--- NOTE | 2018-07-17 12:06 | PDOCDIS ---
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 OTHER ORDERS: Other Orders: 1. Resume home medications. Start taking lower dose of carvedilol. Start taking aspirin, amiodarone, and increased dose of Protonix. 2. Take a low-cholesterol diet. 3. Resume activities as tolerated. 4. Follow-up with your tool/die maker at the earliest. 5. Please go to the nearest emergency room if you have any chest pain, abdominal pain, significant shortness of breath, significant palpitations, or any other unusual signs/symptoms. ELLY CAMPBELL NP Jul 17, 2018 12:06
--- NOTE | 2018-07-17 12:56 | DS ---
Date/Time of Note Date/Time of Note DATE: 07/17/18 TIME: 12:56 Discharge Summary Admission/Discharge Info Admit Date/Time Jul 15, 2018 at 09:58 Discharge Date/Time Discharge Diagnosis 1. Unstable ventricular tachycardia. Status post cardioversion in the emergency room. 2. NSTEMI. 3. Acute kidney injury. Resolved. 4. Hyponatremia. 5. Ischemic cardiomyopathy. Ejection fraction of 15-20%. 6. Dyslipidemia. 7. Abdominal pain. 8. CAD, S/P PCI and stents. 9. History of cardiac arrest. Patient Condition: Stable Consults 1. Paul Stock MD, Cardiology. 2. Fernando Raman DO, Nephrology. Procedures 2D Echocardiogram Conclusions: Normal left ventricular wall thickness. Moderate enlargement of left ventricle cavity. Severe left ventricular systolic dysfunction. Ejection fraction is visually estimated at 15-20 %. These segments of the LV are hypokinetic mid anterior segment, apical anterior segment, apical lateral segment, anterolateral mid segment, inferior apex segment, apex and apical septum. Mitral valve leaflets appear mildly thickened. Mild mitral annular calcification. Mild mitral valve regurgitation. Normal appearance of the aortic valve. No significant aortic stenosis or insufficiency. Normal appearance of the tricuspid valve. Estimated peak PA systolic pressure 35 mmHg. There is mild tricuspid regurgitation. Dilated IVC with respiratory collapse consistent with elevated right atrial pressure. CT Abdomen & Pelvis IMPRESSION: 1. Biliary sludge with possible wall thickening/surrounding inflammatory changes about the gallbladder, though markedly limited due to motion artifact in the upper abdomen. Recommend right upper quadrant abdominal ultrasound for further evaluation of potential acute cholecystitis as clinically warranted. 2. Apparent bilateral lower lobe bronchial wall thickening, possible scattered secretions, also suboptimally assessed, may reflect airway inflammation/infection. Correlate for potential pneumonia. Liver Ultrasound IMPRESSION: 1. New marked abnormal thickening of the gallbladder wall. There are echogenic foci within the wall which may represent air suggesting emphysematous cholecystitis or adenomyomatosis. Note that adenomyomatosis is favored as no air was seen on the CT scan. 2. No biliary duct dilatation. 3. Right renal cyst Hx of Present Illness This is a 77-year-old male with comorbidities including hypertension, dyslipidemia, CAD status post LAD stenting in 2014, status post cardiac arrest in 2014, and prior nicotine use. The patient came to the emergency room today with generalized abdominal pain. Patient was noticed to be in the ventricular tachycardia with hypotension. Therefore, the patient was sedated and cardioverted in the emergency room. The patient's postprocedure EKG was evaluated by manufacturing manager there was no evidence of STEMI. The patient was also noticed to have elevated troponins. The patient was started on a heparin drip. The patient was also noted to be in acute kidney injury. The patient also had a sodium level of 127. The patient denied any nausea/vomiting. The patient denied any diarrhea. The patient denied any chest pain. The patient denied any palpitations. Patient verbalized that he has been compliant with all his medications. The patient currently takes Eliquis, Lipitor, Entresto, Coreg, and Protonix. Later, the patient's CT scan of the abdomen and pelvis was showing biliary sludge with possible wall thickening/surrounding inflammatory changes about the gallbladder. The patient's LFTs were within normal limits. Hospital Course The patient was admitted to inpatient intensive care unit. The patient was started on heparin drip because of his underlying NSTEMI. Patient was was cardioverted in the emergency room successfully. A cardiology consult was obtained. Cardiology recommended a left heart catheterization provided the paul murray's history of CAD and current ventricular tachycardia along with the elevated troponins. However, the patient refused any invasive procedures. The patient was also instructed on the importance of putting an AICD in place. However, the patient refused AICD insertion. The patient refused any invasive procedures or any other procedures or devices to help with his underlying cardiac condition. However, the patient agreed on taking his medications. The patient underwent a 2D echocardiogram that was showing ejection fraction of 15- 20%. The patient was restarted on Entresto and beta-blockers, once the patient's hypotension was resolved and once the patient's renal function improved. The patient had evidence of underlying acute kidney injury along with hyponatremia. Nephrotoxic drugs were put on hold. A nephrology consult was obtained. The patient's renal function improved with gentle hydration. The patient's hyponatremia also improved with correction of his MAYCO. The patient has underlying dyslipidemia. The patient was maintained on statins. The patient's abdominal pain was extensively evaluated. The patient's CT scan of the abdomen was showing biliary sludge with possible wall thickening/surrounding inflammatory changes. Therefore, the patient underwent a liver ultrasound that was showing abnormal thickening of the gallbladder. Nevertheless, the patient's LFTs remained stable. The patient's abdominal pain resolved over the course of his hospital stay. The patient refused any further intervention for his abdominal pain. The patient has prior history of cardiac arrest with a stent placement to LAD. The patient was maintained on aspirin. The patient had underlying unstable ventricular tachycardia. The patient is at very high risk for recurrent V. tach. The patient's clinical status indicates AICD placement. Nevertheless, the patient is refusing any AICD or any other devices. Therefore, the patient will be discharged home, to be followed up with outpatient cardiology. The patient verbalized that he has his own clean up person. Discharge Instructions 1. Resume home medications. Start taking lower dose of carvedilol. Start taking aspirin, amiodarone, and increased dose of Protonix. 2. Take a low-cholesterol diet. 3. Resume activities as tolerated. 4. Follow-up with your clean up person at the earliest. 5. Please go to the nearest emergency room if you have any chest pain, abdominal pain, significant shortness of breath, significant palpitations, or any other unusual signs/symptoms. The patient verbalized understanding of the discharge instructions. At this time I would like to thank all the consultants for seeing the patient and providing clinical recommendations. The patient was seen in collaboration with Dr. Shah. Home Meds Active Scripts Aspirin Delayed Release (Aspirin Delayed Release) 81 Mg Tablet., 81 MG PO DAILY, #30 TAB Prov:ELLY CAMPBELL NP 07/17/18 Carvedilol* (Carvedilol*) 3.125 Mg Tablet, 3.125 MG PO BID, #60 TAB Hold for SBP less than 100 and/or heart rate less than 55/min. Prov:ELLY CAMPBELL NP 07/17/18 Amiodarone Hcl* (Amiodarone Hcl*) 200 Mg Tablet, 200 MG PO BID, #60 TAB Prov:ELLY CAMPBELL NP 07/17/18 Atorvastatin* (Atorvastatin*) 40 Mg Tablet, 40 MG PO HS, #30 TAB Prov:ELLY CAMPBELL NP 07/17/18 Pantoprazole* (Pantoprazole*) 40 Mg Tablet., 40 MG PO BID@06,18, #60 TAB Prov:ELLY CAMPBELL NP 07/17/18 Reported Medications Tamsulosin Hcl* (Tamsulosin Hcl*) 0.4 Mg Cap.er.24h, 0.4 MG PO HS, CAP 07/15/18 Apixaban* (Eliquis*) 5 Mg Tablet, 5 MG PO BID, TAB 07/15/18 Sacubitril/Valsartan (Entresto 24 mg-26 mg Tablet) 1 Each Tablet, 1 EACH PO BID, TAB 07/15/18 Discontinued Reported Medications Carvedilol* (Carvedilol*) 6.25 Mg Tablet, 6.25 MG PO BID, #60 TAB 07/15/18 Pantoprazole* (Pantoprazole*) 40 Mg Tablet.dr, 40 MG PO AC BREAKFAST, TAB 07/15/18 Olopatadine* (Pataday*) 0.2% - 2.5 Ml Drops, 1 DROP OP DAILY, EA INTO AFFECTED EYE(S) 12/04/14 Omeprazole* (Omeprazole*) 20 Mg Capsule.dr, 20 MG PO BID, CAP 12/04/14 Clonazepam* (Klonopin*) 0.5 Mg Tab, 0.5 MG PO TID, TAB 12/04/14 Ibuprofen* (Ibuprofen*) 600 Mg Tablet, 600 MG PO TID PRN for PAIN, TAB 12/04/14 Escitalopram Oxalate* (Lexapro*) 10 Mg Tablet, 10 MG PO DAILY, TAB 12/04/14 Neomy Sulf/Colist Sul/Hc/Thonz (Cortisporin-Tc Ear Susp) 10 Ml Drops.susp, 3 DROP OT TID 12/04/14 Discontinued Scripts Ticagrelor* (Brilinta*) 90 Mg Tablet, 90 MG PO Q12 for 30 Days, TAB Prov:ROHAN PHILIP MD 06/10/16 Amiodarone Hcl* (Amiodarone Hcl*) 400 Mg Tablet, 400 MG PO BID for 30 Days, TAB Prov:ROHAN PHILIP MD 06/10/16 Hydrochlorothiazide (Hydrochlorothiazide) 12.5 Mg Cap, 12.5 MG PO DAILY, #30 3 Refills Prov:OUMAR LOUIE 12/11/14 Lisinopril* (Zestril*) 5 Mg Tab, 2.5 MG PO DAILY, #30 3 Refills Prov:OUMAR LOUIE 12/11/14 Carvedilol* (Coreg*) 3.125 Mg Tab, 3.125 MG PO BID, #60 3 Refills Prov:OUMAR LOUIE 12/11/14 Atorvastatin Calcium* (Atorvastatin Calcium*) 20 Mg Tab, 40 MG PO DAILY@21, #30 3 Refills Prov:OUMAR LOUIE 12/11/14 Aspirin* (Aspirin* EC) 81 Mg Tabec, 81 MG PO DAILY, #120 Prov:OUMAR LOUIE 12/11/14 Follow-up Plan Follow-up with your clean up person at the earliest. Primary Care Provider Not On Staff Doctor Pending Labs Laboratory Tests Test 07/17/18 06:19 White Blood Count 4.4 10^3/ul (4.8-10.8) Red Blood Count 3.95 10^6/ul (4.70-6.10) Hemoglobin 11.6 g/dl (14.0-18.0) Hematocrit 35.0 % (42.0-52.0) Mean Corpuscular Volume 88.6 fl (82.0-101.0) Mean Corpuscular Hemoglobin 29.4 pg (29.0-33.0) Mean Corpuscular Hemoglobin Concent 33.1 g/dl (32.0-37.0) Red Cell Distribution Width 14.6 % (11.5-14.5) Platelet Count 219 10^3/UL (140-415) Mean Platelet Volume 10.9 fl (7.4-10.4) Immature Granulocytes % 0.500 % (0.001-0.429) Neutrophils % 49.9 % (39.0-77.0) Lymphocytes % 33.2 % (15.0-51.0) Monocytes % 12.7 % (0.0-11.0) Eosinophils % 3.0 % (0.0-7.0) Basophils % 0.7 % (0.0-2.0) Nucleated Red Blood Cells % 0.0 /100WBC (0.0-0.0) Immature Granulocytes # 0.020 10^3/ul (0.0-0.031) Neutrophils # 2.2 10^3/ul (1.6-7.5) Lymphocytes # 1.5 10^3/ul (0.8-2.9) Monocytes # 0.6 10^3/ul (0.3-0.9) Eosinophils # 0.1 10^3/ul (0.0-0.5) Basophils # 0.0 10^3/ul (0.0-0.1) Nucleated Red Blood Cells # 0.0 10^3/ul (0.0-0.0) Sodium Level 138 mmol/L (135-144) Potassium Level 4.2 mmol/L (3.5-5.1) Chloride Level 106 mmol/L (97-110) Carbon Dioxide Level 26 mmol/L (21-31) Anion Gap 6 (5-13) Blood Urea Nitrogen 24 mg/dl (7-20) Creatinine 1.21 mg/dl (0.61-1.24) Est Glomerular Filtrat Rate mL/min mL/min (>60) Glucose Level 84 mg/dl (70-220) Calcium Level 8.3 mg/dl (8.4-10.2) Phosphorus Level 2.8 mg/dl (2.5-4.9) Magnesium Level 1.9 mg/dl (1.7-2.5) Creatine Kinase 145 IU/L (23-200) Creatine Kinase Index 0.6 Creatinine Kinase MB (Mass) 0.86 ng/ml (0.0-2.4) Troponin I 0.986 ng/ml (0.000-0.120) ELLY CAMPBELL NP Jul 17, 2018 12:56
== END 2018-07-17 14:25 | disposition home or self-care (01) | DRG 281 ==
LOC: E/R 07:56 → ICU 09:58 → TEL 07-16 17:34
PROVIDERS: ADMIT Family Medicine; ATTEND Family Medicine
PROC: 5A2204Z Restoration of Cardiac Rhythm, Single (ICD-10-PCS; principal; 2018-07-15)
DX: I21.4 Non-ST elevation (NSTEMI) myocardial infarction (principal); I47.2 Ventricular tachycardia; N17.9 Acute kidney failure, unspecified; E87.1 Hypo-osmolality and hyponatremia; R10.9 Unspecified abdominal pain; E78.5 Hyperlipidemia, unspecified; I10 Essential (primary) hypertension; I25.2 Old myocardial infarction; E87.5 Hyperkalemia; I25.10 Atherosclerotic heart disease of native coronary artery without angina pectoris; I25.5 Ischemic cardiomyopathy; Z79.82 Long term (current) use of aspirin; Z95.5 Presence of coronary angioplasty implant and graft; Z86.74 Personal history of sudden cardiac arrest
CPT/HCPCS: 36415; 71045; 74176; 76705; 80048; 80053; 80061; 81001; 81003; 82043; 82550; 82553; 83036; 83690; 83735; 83880; 83935; 84100; 84155; 84300; 84439; 84443; 84484; 84560; 85025; 85610; 85730; 87081; 93005; 93306; 96374; J0282; J1644; J3475; J7030; J7040